=== PATIENT | female | born 1960 | race African-American/Black ===

== ENCOUNTER 2023-02-14 11:52 | Outpatient (CLI) | payer BC, SELFPAY ==
--- NOTE | ~2023-02-14 | XR_ITS ---
Right Knee Technique: AP, lateral, and sunrise views were obtained. Clinical History: Osteoarthritis Findings: No fracture or dislocation is seen. There is advanced tricompartmental osteophytosis, with joint space narrowing and osteophyte formation. Soft tissues are unremarkable. No joint effusion is s een. Impression: Advanced tricompartmental osteoarthritis. Reviewed, dictated and finalized at location M. Impression: Advanced tricompartmental osteoarthritis.
--- NOTE | ~2023-02-14 | XR_ITS ---
Left Knee Technique: AP, lateral, and sunrise views were obtained. Clinical History: Osteoarthritis Findings: No fracture or dislocation is seen. There is severe osteoarthritis of the medial compartmen t, with prominent osteophyte formation and joint space narrowing. There is also moderate to severe de generative change at the patellofemoral compartment, again with joint space narrowing and osteophyte formation. There is mild degenerative change of the lateral compartment. Soft tissues are unremarkabl e. No joint effusion is seen. Impression: Severe osteoarthritis of the medial and patellofemoral compartments, as detailed above. Mild degenerative change of the lateral compartment. Reviewed, dictated and finalized at location M. Impression: Severe osteoarthritis of the medial and patellofemoral compartments, as detaile d above. Mild degenerative change of the lateral compartment.
== END 2023-02-14 11:53 | disposition home or self-care (01) ==
PROVIDERS: Visit Provider Orthopaedic Surgery
DX: M17.0 Bilateral primary osteoarthritis of knee (principal)
CPT/HCPCS: 73564

== ENCOUNTER 2024-11-06 12:50 | Outpatient (CLI) | payer BC, SELFPAY ==
--- NOTE | ~2024-11-06 | XR_ITS ---
Left Knee Technique: AP, lateral, and sunrise views were obtained. Clinical History: Arthritis Findings: No fracture or dislocation is seen. There is severe medial compartment narrowing with bone- on-bone appearance. There is severe degenerative change of the patellofemoral compartment with joint space narrowing. Prominent tricompartmental osteophytes are present. Soft tissues are unremarkable. N o joint effusion is seen. Impression: Severe tricompartmental osteoarthritis, especially medial and patellofemoral compartments. Reviewed, dictated and finalized at location M. Impression: Severe tricompartmental osteoarthritis, especially medial and patellofemoral co mpartments.
--- NOTE | ~2024-11-06 | XR_ITS ---
Right Knee Technique: AP, lateral, and sunrise views were obtained. Clinical History: Arthritis Findings: No fracture or dislocation is seen. There is advanced tricompartmental osteoarthritis with extensive osteophyte formation and tricompartmental joint space narrowing.. Soft tissues are unremark able. No joint effusion is seen. Impression: Severe tricompartmental osteoarthritis. Reviewed, dictated and finalized at location . Impression: Severe tricompartmental osteoarthritis.
--- OUTSIDE RECORDS SUMMARY | 2024-11-07 13:31 | XMS_ITS | Encounter Summary ---
Author Organization [facility] Address [address] [place] [address] Phone Care Team Providers Care Vehicle Sales Professional Name Role Phone Leila Cade MD Primary Care Provider [phone] Lucinda Chowdhury [facility] Primary Care Provider + Lucinda Chowdhury PAC Primary Care Provider + Jostin Stein MD Primary Care Provider [phone] Andrew Hearn MD Primary Care Provider [phone] Reason for Visit * Reason Comments Medication Refill Encounter Details Date Type Department Care Team (Late st Contact Info) Description 09/09/2020 Refill [facility] - Family Medicine [facility] [address] [place] [address] Leila Cade MD [address] [place] [address] Medication Refill Social History Tobacco Use Types Packs/Day Years Used Date Smoking Tobacco: Never Smokeless Tobacco: Never Alcohol Use Standard Drinks/Week Comments No 0 (1 standard drink = 0.6 oz pur e alcohol) PHQ-2 Answer Date Recorded PHQ-2 Score 0 03/13/2019 Comments No Sex and Gender Information Value Date Recorded Sex Assigned at Not on file Legal Sex Female 12:36 AM CDT Gender Identity Not on file Sexual Orientation Not on file COVID-19 Exposure Response Date Recorded In the last month, have you been in contact with someone who was confirmed or suspected to have Coronavirus / COVID-19? 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 Requested Prescriptions Pending Prescriptions Disp Refills traMADol (ULTRAM) 50 MG Tablet [Pharmacy Med Name: TRAMADOL HCL 50 MG TABLET] 120 Tablet 0 Sig: TAKE 1 TAB BY MOUTH EVERY 6 HOURS NEEDED FOR MODERATE OR MORE SEVERE PAIN. Not Delegated - Analgesics: Opioid Agonists Failed - 09/09/2020 7:17 PM Failed - This refill cannot be delegated Passed - Valid encounter within last 6 months Past Office Visits Recent Outpatient Visits 1 month ago Urinary hesitancy [facility] - Leila Anderson MD 6 months ago Sinusitis, unspecified chronicity, unspecified location [facility] - Lucinda Luke PAC 10 months ago Essential hypertension [facility] - Leila Anderson MD 11 months ago Sinusitis, unspecified chronicity, unspecified location [facility] Lucinda Webb PAC 11 months ago Acute pharyngitis, unspecified etiology [facility] Lucinda Webb PAC Upcoming Appointments RN IMMUNOLOGY - Recent and Past Visits Recent Visits Date Type Provider Dept 08/11/20 Office Visit Leila Cade MD [facility] 03/09/20 Telemedicine Lucinda Chowdhury PAC [facility] 11/03/19 Telemedicine Leila Cade MD [facility] 10/02/19 Telemedicine Luicnda Chowdhury PAC [facility] 09/21/19 Office Visit Lucinda Chowdhury PAC [facility] 08/04/19 Office Visit Leila Cade MD [facility] Showing recent visits within past 460 days with a meds authorizing provider and meeting all other requirements Future Appointments No visits were found meeting these conditions. Showing future appointments within next 90 days with a meds authorizing provider and meeting all other requirements Acetaminophen-Codeine 300-60 MG Tablet [Pharmacy Med Name: ACETAMINOPHEN-COD #4 TABLET] 120 Tablet 0 Sig: TAKE 1 TAB BY MOUTH 4 TIMES DAILY NEEDED FOR PAIN. Not Delegated - Analgesics: Opioid Agonist Combinations Failed - 09/09/2020 7:17 PM Failed - This refill cannot be delegated Passed - Valid encounter within last 6 months Past Office Visits Recent Outpatient Visits 1 month ago Urinary hesitancy [facility] Leila Anderson MD 6 months ago Sinusitis, unspecified chronicity, unspecified location [facility] Lucinda Luke PAC 10 months ago Essential hypertension [facility] Leila Anderson MD 11 months ago Sinusitis, unspecified chronicity, unspecified location [facility] Lucinda Luke PAC 11 months ago Acute pharyngitis, unspecified etiology [facility] Lucinda Luke PAC Upcoming Appointments RN IMMUNOLOGY - Recent and Past Visits Recent Visits Date Type Provider Dept 08/11/20 Office Visit Leila Cade MD [facility] 03/09/20 Telemedicine Lucinda Chowdhury PAC [facility] 11/03/19 Telemedicine Leial Cade MD [facility] 10/02/19 Telemedicine Lucinda Chowdhury PAC [facility] 09/21/19 Office Visit Lucinda Chowdhury PAC [facility] 08/04/19 Office Visit Leila Cade MD [facility] Showing recent visits within past 460 days with a meds authorizing provider and meeting all other requirements Future Appointments No visits were found meeting these conditions. Showing future appointments within next 90 days with a meds authorizing provider and meeting all other requirements AVED ROLLER INSPECTOR documented in this encounter Plan of Treatment Upcoming Encounters Date Type Department Care Team (Late st Contact Info) Description 11/12/2024 1:45 PM CDT Office Visit [facility] Family [facility] [address] [place] [address] Andrew Hearn MD [address] [place] [address] [address] documented as of this encounter Visit Diagnoses Diagnosis Chronic pain of both knees documented in this encounter Additional Health Concerns Infection Onset Date Last Indicated Resolved Time COVID - 19 01/20/2024 01/20/2024 01/20/2024 2:33 AM CDT COVID - 19 Confirmed 01/20/2024 01/20/2024 024 12:16 AM CDT Respiratory Rule-Out 09/27/2024 09/27/2024 025 3:40 PM CDT COVID - 19 09/27/2024 09/27/2024 09/27/2024 3:39 PM CDT Assessment Noted Time PHQ-9 Depression Total Score: 0 08/04/19 20 1:54 PM ENGRAVED ROLLER INSPECTOR documented as of this encounter Care Teams Vehicle Sales Professional Relationship Specialty Start Date End Date Leila Cade MD [address] [place] [address] PCP - General Family Medicine 05/25/15 07/08/23 Lucinda Chowdhury, ELD[place] [address] [place] [address] PCP - General Physician Sales Support Engineer 07/09/23 01/02/24 Lucinda Chowdhury PAC [address] [place] [address] PCP - General Physician Sales Support Engineer 01/20/24 02/26/24 Jostin Stein MD [address] [address] PCP - General Family Medicine 03/04/24 03/04/24 Andrew Hearn MD [address] [address] PCP - General Family Medicine 03/16/24 documented as of this encounter
--- OUTSIDE RECORDS SUMMARY | 2024-11-07 13:31 | XMS_ITS | Clinical Summary ---
Author Organization [facility] Address [address] [place] [address] Care Team Providers Care Engineering Production Worker Name Role Phone Tammy Dietrich MD Primary Care Provider [phone] Source Comments [facility],non-[facility] Affiliates and Associated Physician Practices is amultiple site organization consisting of ambulatory clinics and hospital sitesin [place], [place], [place] and [place]. This disclosure is being madepursuant to the Care Everywhere program and may not contain all information available regarding this patient. Last updated 18.[facility] Allergies No known active allergies Medications * Be aware that medications may not be up to date on this document. Alwaysverify current medications with the patient. omeprazole (PRILOSEC) 40 MG capsule Take 40 mg by mouth daily before breakfast. Active losartan (COZAAR) 25 MG tablet Take 25 mg by mouth once daily. Active sennosides (SENOKOT) 8.6 MG tablet Take by mouth once daily Active Docusate Sodium (COLACE PO) Take by mouth once daily Active Probiotic Product (ALIGN PO) Take by mouth once daily Active melatonin 1 MG tablet Take 10 mg by mouth nightly as needed Active folic acid (FOLVITE) 1 MG tablet TAKE 1 TABLET BY MOUTH EVERY DAY 9 Active albuterol HFA (PROVENTIL HFA) 108 (90 BASE) MCG/ACT inhaler Inhale 2 puffs by mouth every 6 hours as needed 9 Active hydroCHLOROthia zide (HYDRODIURIL) 25 MG tablet Take 25 mg by mouth once daily Active magnesium hydroxide (MILK OF MAGNESIA) 400 MG/5ML suspension Take 15 mL by mouth once daily 9 Active Additional Information Patient not taking.Reported on 05/06/2020 Multiple Vitamins-Minera ls (MULTIVITAL PO) Take 1 tablet by mouth once daily Active CALCIUM-VITAMIN D PO Take 1 tablet by mouth once daily Active acetaminophen-c odeine (TYLENOL/CODEIN E #4) 300-60 MG tablet Take 1 tablet by mouth every 6 hours 9 Active traMADol (ULTRAM) 50 MG tablet TAKE 1 TAB BY MOUTH EVERY 6 HOURS NEEDED FOR MODERATE OR MORE SEVERE PAIN. 0 9 Active meclizine (ANTIVERT) 25 MG tablet Take 25 mg by mouth 9 Active candesartan (ATACAND) 8 MG tablet TAKE 1 TABLET BY MOUTH EVERY DAY 0 Active Active Problems Patient Care Coordination No te Formatting of this note migh t be different from the original. Chart abstracted. Problem Noted Date Diagnosed Date S/P laparoscopic sleeve gastrectomy 10/20/2018 Preop examination 10/20/2018 DJD (degenerative joint disease) of knee 010 Overview (03/31/2012): 03/31/2012 Pt not covered for synvisc Family History Medical History Relation Name Comments Leukemia Brother Diabetes - Type 2 Father CAD (Coronary Artery Disease) Maternal Grandmother CVA Maternal Grandmother Hypertension Mother Cancer - Breast Sister Relation Name Status Comments Brother Father Maternal Grandmother Mother Sister Social History Tobacco Use Types Packs/Day Years Used Date Smoking Tobacco: Never Smokeless Tobacco: Never Alcohol Use Standard Drinks/Week Comments No 0 (1 standard drink = 0.6 oz pur e alcohol) Comments No Sex and Gender Information Value Date Recorded Sex Assigned at Not on file Legal Sex Female 4:47 AM CHEMIST FOOD Gender Identity Not on file Sexual Orientation Not on file Last Filed Vital Signs Vital Sign Reading Time Taken Comments Blood Pressure 124/82 06/09/2019 1:00 PM CHEMIST FOOD Pulse 102 06/09/2019 1:00 PM CHEMIST FOOD Temperature 36.8 C (98.2 F) 12/03/2018 3:09 PM CDT Respiratory Rate 18 12/03/2018 3:09 PM CDT Oxygen Saturation 92% 10/22/2018 8:07 AM CDT Inhaled Oxygen Concentration - - Weight 135.2 kg (298 lb) 05/06/2020 1:11 PM CDT Height 175.3 cm (5' 9 ) 05/06/2020 1:11 PM CDT Body Mass Index 44.01 05/06/2020 1:11 PM CDT Plan of Treatment Health Maintenance Due Date Last Done Comments BONE DENSITY TESTING 1959 COLOGUARD (AGES 45-75) - COLON CA SCREENING 1959 COLON MONITORING 1959 COLONOSCOPY - COLON CA SCREENING 1959 CT COLONOGRAPHY - COLON CA SCREENING 1959 Colorectal Cancer Screening 1959 FIT - COLON CA SCREENING 1959 FLEX SIG - COLON CA SCREENING 1959 PAP SMEAR 1959 HIV SCREENING 09/17/1974 HEPATITIS C SCREENING 09/13/1977 DTAP/TDAP/TD VACCINES (1 - Tdap) 09/17/1978 PNEUMOCOCCAL VACCINE 50+ (1 of 1 - PCV) 09/17/2009 ZOSTER VACCINE (1 of 2) 09/17/2009 Respiratory Syncytial Virus (RSV) Vaccine Pt: or over 60 yrs (1 - Risk 60-74 years 1-dose series) 2019 MAMMOGRAM 08/14/2020 08/14/2018 SCREENING FOR DIABETES 06/09/2022 9, 10/22/2018, 10/22/2018, Additional history exists LIPID TESTING 06/13/2023 06/13/2018 COVID-19 VACCINE ( season) 2024 10/04/2020 DEPRESSION SCREENING 07/08/2024 INFLUENZA VACCINE (Season Ended) 2025 04/17/2022, 04/05/2020, 04/28/2019, Additional history exists HEPATITIS B VACCINE Aged Out No longe r eligible based on patient's age to complete this topic HIB VACCINE Aged Out No longer eligi ble based on patient's age to complete this topic HPV VACCINE Aged Out No longer eligi ble based on patient's age to complete this topic MENINGOCOCCAL (Group B) VACCINE SHARED DECISION-MAKING Aged Out No longer eligible based on patient's age to complete this topic MENINGOCOCCAL GROUPS A/C/Y/W VACCINE Aged Out No longer eligible based on patient's age to complete this topic Procedures Procedure Name Priority Date/Time Associated Diagnosis Comments COMPREHENSIVE METABOLIC PANEL Routine 06/09/2019 2:12 PM CHEMIST FOOD Morbid obesity Bariatric surgery status Vitamin deficiency Mineral deficiency Vitamin D deficiency from Last 3 Months or Most Recently Relevant to Health Maintenance Results * (ABNORMAL) COMPREHENSIVE METABOLIC PANEL (06/09/2019 2:12 PM CHEMIST FOOD) Glucose 103 70 - 105 mg/dL [facility] ACCOUNT BILL BUN 17 9.8 - 20.1 mg/dL [facility] ACCOUNT BILL Creatinine 1.15(H) 0.57 - 1.11 mg/dL [facility] ACCOUNT BILL eGFR by MDRD 48(L) >60 mL/min/1.7 3m2 [facility] ACCOUNT BILL eGFR by MDRD 59(L) >60 mL/min/1.7 3m2 [facility] ACCOUNT BILL Sodium 143 136 - 145 mmol/L [facility] ACCOUNT BILL Potassium 4.0 3.5 - 4.7 mmol/L [facility] ACCOUNT BILL Chloride 104 98 - 107 mmol/L [facility] ACCOUNT BILL CO2 32(H) 23 - 31 mmol/L [facility] ACCOUNT BILL Calcium 10.0 8.4 - 10.4 mg/dL [facility] ACCOUNT BILL Protein Total 7.3 6.4 - 8.3 gm/dL [facility] ACCOUNT BILL Albumin 4.3 3.5 - 5.2 gm/dL [facility] ACCOUNT BILL Bilirubin Total 0.3 0.2 - 1.0 mg/dL [facility] ACCOUNT BILL Alkaline Phosphatase 84 40 - 150 U/L [facility] ACCOUNT BILL AST 17 5 - 34 U/L [facility] ACCOUNT BILL ALT 14 0 - 61 U/L [facility] ACCOUNT BILL Blood BLOOD SPECIMEN / Unknown 06/09/2019 2:12 PM CHEMIST FOOD 06/09/2019 Narrative Resulting Agency Comment Lab Testing performed at: [place] [address] [place] [id number] us Laura Garcia REFRIGERATING MACHINE OPERATOR-[employer] [facility] - CHEMISTRY O RDERABLES Final Result [facility] ACCOUNT BILL [address] [place] [address] from Last 3 Months or Most Recently Relevant to Health Maintenance Insurance ANTHEM ANTHEM Advance Directives * Full Code (Latest Code Status on File) Date Activated Date Inactivated Comments 10/20/2018 3:22 PM 10/22/2018 2:27 PM Care Teams Engineering Production Worker Relationship Specialty Start Date End Date Tammy Dietrich MD [address] [address] PCP - General 12/05/18
--- OUTSIDE RECORDS SUMMARY | 2024-11-07 13:31 | XMS_ITS | Encounter Summary ---
Author Organization [facility] Address [address] [place] [address] Phone Care Team Providers Care Radiologist Physician Name Role Phone Lucinda Chowdhury Primary Care Provider + Lucinda Chowdhury PAC Primary Care Provider + Jostin Stein MD Primary Care Provider [phone] Andrew Hearn MD Primary Care Provider [phone] Reason for Visit * Reason Comments Medication Refill Encounter Details Date Type Department Care Team (Late st Contact Info) Description 11/08/2023 Refill [facility] [address] [place] [id number] Lucinda Chowdhury [facility] [address] [place] [address] Medication Refill Social History Tobacco Use Types Packs/Day Years Used Date Smoking Tobacco: Never Smokeless Tobacco: Never Alcohol Use Standard Drinks/Week Comments No 0 (1 standard drink = 0.6 oz pur e alcohol) PHQ-2 Answer Date Recorded Total Score - Questions 1-9 0 07/09 Comments No Sex and Gender Information Value Date Recorded Sex Assigned at Not on file Legal Sex Female 12:36 AM CDT Gender Identity Not on file Sexual Orientation Not on file documented as of this encounter Miscellaneous Notes * Telephone Encounter - Missy Rivera RN - 11/09/2023 11:36 AM CDT Medication(s) refilled and signed per [facility] Chronic Medication Refill Standing Order for Pediatricand Adult Patients. Requested Prescriptions Pending Prescriptions Disp Refills candesartan (ATACAND) 8 MG Tablet [Pharmacy Med Name: CANDESARTAN CILEXETIL 8 MG TAB] 90 Tablet 1 Sig: TAKE 1 TABLET BY MOUTH EVERY DAY ARB Protocol Passed - 11/08/2023 5:43 PM Passed - Serum potassium on record in past 12 months POTASSIUM Date Value Ref Range Status 07/22/2023 2.7 (LL) 3.5 - 5.1 mmol/L Final Passed - BP on record in the past year Clinician-entered: BP Readings from Last 3 Encounters: 08/14/23 154/90 07/12/23 130/82 07/09/23 122/71 Patient-entered: No data recorded Passed - Visit with relevant provider in past year or upcoming 90 days Recent Visits Date Type Provider Dept 07/12/23 Office Visit Agnieszka Fish APRN, LUZMA [facility] [place] 03/21/23 Office Visit Lucinda Chowdhury PAC [facility] [place] 02/07/23 Office Visit Leila Cade MD [facility] [place] 12/25/22 Office Visit Lucinda Chowdhury [facility] [place] Showing recent visits within past 365 days and meeting all other requirements Future Appointments No visits were found meeting these conditions. Showing future appointments within next 90 days and meeting all other requirements Passed - GFR on record in past 12 months GFR, EST. Date Value Ref Range Status 07/22/2023 >60 >=60 Final atorvastatin (LIPITOR) 10 MG Tablet [Pharmacy Med Name: ATORVASTATIN 10 MG TABLET] 90 Tablet 1 Sig: TAKE 1 TABLET BY MOUTH EVERY DAY Hmg CoA Reductase Inhibitors Protocol Passed - 11/08/2023 5:43 PM Passed - Visit with relevant provider in past 12 months or upcoming 90 days Recent Visits Date Type Provider Dept 07/12/23 Office Visit Agnieszka Fish APRN, SURGEON ASSISTANT [facility] [place] 03/21/23 Office Visit Lucinda Chowdhury, PAC [facility] [place] 02/07/23 Office Visit Leila Cade MD [facility] [place] 12/25/22 Office Visit Lucinda Chowdhury, ELDER [facility] [place] Showing recent visits within past 365 days and meeting all other requirements Future Appointments No visits were found meeting these conditions. Showing future appointments within next 90 days and meeting all other requirements Passed - Lipid panel in past 12 months LDL Date Value Ref Range Status 07/22/2023 80 <130 mg/dL Final HDL CHOLESTEROL Date Value Ref Range Status 07/22/2023 71 >40 mg/dL Final CHOLESTEROL Date Value Ref Range Status 07/22/2023 171 <200 mg/dL Final TRIGLYCERIDES Date Value Ref Range Status 07/22/2023 99 <150 mg/dL Final VLDL Date Value Ref Range Status 07/22/2023 20 10 - 50 mg/dL Final CHOL/HDL RATIO Date Value Ref Range Status 07/22/2023 2.4 0.0 - 4.4 Final NON-HDL CHOLESTEROL Date Value Ref Range Status 07/22/2023 100 <130 mg/dL Final Passed - CMP in past 12 months SODIUM Date Value Ref Range Status 07/22/2023 138 136 - 145 mmol/L Final POTASSIUM Date Value Ref Range Status 07/22/2023 2.7 (LL) 3.5 - 5.1 mmol/L Final CHLORIDE Date Value Ref Range Status 07/22/2023 101 98 - 107 mmol/L Final CO2, VENOUS Date Value Ref Range Status 07/22/2023 30 22 - 30 mmol/L Final ANION GAP Date Value Ref Range Status 07/22/2023 9.7 <18.0 mmol/L Final GLUCOSE Date Value Ref Range Status 07/22/2023 85 70 - 99 mg/dL Final BUN Date Value Ref Range Status 07/22/2023 14 10 - 20 mg/dL Final CREATININE, BLOOD Date Value Ref Range Status 07/22/2023 0.94 0.60 - 1.00 mg/dL Final BUN/CREATININE RATIO Date Value Ref Range Status 07/22/2023 15 12 - 20 ratio Final TOTAL PROTEIN Date Value Ref Range Status 07/22/2023 7.6 6.3 - 8.2 g/dL Final ALBUMIN Date Value Ref Range Status 07/22/2023 4.0 3.5 - 5.0 g/dL Final A/G RATIO Date Value Ref Range Status 11/01/2022 1.2 1.0 - 2.0 Final CALCIUM Date Value Ref Range Status 07/22/2023 9.7 8.7 - 10.5 mg/dL Final T BILI Date Value Ref Range Status 07/22/2023 0.6 0.2 - 1.2 mg/dL Final SGOT (AST) Date Value Ref Range Status 07/22/2023 22 5 - 34 U/L Final SGPT (ALT) Date Value Ref Range Status 07/22/2023 31 0 - 55 U/L Final ALKALINE PHOSPHATASE Date Value Ref Range Status 07/22/2023 104 40 - 150 U/L Final GFR, EST. NONAFRICAN Date Value Ref Range Status 07/22/2023 60 >=60 Final GFR, EST. Date Value Ref Range Status 07/22/2023 >60 >=60 Final GFR, ESTIMATED Date Value Ref Range Status 07/22/2023 >60 >=60 Final Comment: Creatinine Clearance is the preferred criteria for selecting drug dose adjustments in renally impaired patients. The GFR is provided as additional pertinent clinical information. GFR is reported in mL/min/1.73 sq m. Calculation based on the Chronic Kidney Disease Epidemiology Collaboration (CKD- EPI) equation refitwithout adjustment for race. IS THE PATIENT REQUIRED TO BE FASTING? Date Value Ref Range Status 07/22/2023 No Final hydroCHLOROthiazide 25 MG Tablet [Pharmacy Med Name: HYDROCHLOROTHIAZIDE 25 MG TAB] 90 Tablet 1 Sig: TAKE 1 TABLET BY MOUTH EVERY DAY Diuretics Protocol Passed - 11/08/2023 5:43 PM Passed - Serum potassium on record in past 12 months POTASSIUM Date Value Ref Range Status 07/22/2023 2.7 (LL) 3.5 - 5.1 mmol/L Final Passed - Serum sodium on record in past 12 months SODIUM Date Value Ref Range Status 07/22/2023 138 136 - 145 mmol/L Final Passed - Blood pressure on record in past 12 months Clinician-entered: BP Readings from Last 3 Encounters: 08/14/23 154/90 07/12/23 130/82 07/09/23 122/71 Patient-entered: No data recorded Passed - Visit with relevant provider in past 12 months or upcoming 90 days Recent Visits Date Type Provider Dept 07/12/23 Office Visit Agnieszka Fish APRN, LUZMA [facility] 03/21/23 Office Visit Lucinda Chowdhury [facility] 02/07/23 Office Visit Leila Cade MD [facility] 12/25/22 Office Visit Lucinda Chowdhury PAC [facility] Showing recent visits within past 365 days and meeting all other requirements Future Appointments No visits were found meeting these conditions. Showing future appointments within next 90 days and meeting all other requirements Passed - GFR on record in past 12 months GFR, EST. Date Value Ref Range Status 07/22/2023 >60 >=60 Final documented in this encounter Plan of Treatment Upcoming Encounters Date Type Department Care Team (Late st Contact Info) Description 11/12/2024 1:45 PM CDT Office Visit [facility] - Family Medicine [facility] [address] [place] [address] Andrew Hearn MD [address] [address] documented as of this encounter Visit Diagnoses Not on filedocumented in this encounter Additional Health Concerns Infection Onset Date Last Indicated Resolved Time COVID - 19 01/20/2024 01/20/2024 01/20/2024 2:33 AM CDT COVID - 19 Confirmed 01/20/2024 01/20/2024 024 12:16 AM CDT Respiratory Rule-Out 09/27/2024 09/27/2024 025 3:40 PM CDT COVID - 19 09/27/2024 09/27/2024 09/27/2024 3:39 PM CDT Assessment Noted Time PHQ-9 Depression Total Score: 0 01/25/20 21 11:00 AM CDT documented as of this encounter Care Teams Radiologist Physician Relationship Specialty Start Date End Date Lucinda Chowdhury PAC [address] [place] [address] PCP - General Physician Coin Purse Assembler 07/09/23 01/02/24 Lucinda Chowdhury, PAC [address] [place] [address] PCP - General Physician Coin Purse Assembler 01/20/24 02/26/24 Jostin Stein MD [address] [address] PCP - General Family Medicine 03/04/24 03/04/24 Andrew Hearn MD [address] [address] PCP - General Family Medicine 03/16/24 documented as of this encounter
--- OUTSIDE RECORDS SUMMARY | 2024-11-07 13:31 | XMS_ITS | Encounter Summary ---
Author Organization [facility] Address [address] [place] [address] Phone Care Team Providers Care Business Intelligence Etl Developer Name Role Phone Leila Cade MD Primary Care Provider Lucinda Chowdhury PAC Primary Care Provider + Lucinda Chowdhury PAC Primary Care Provider + Jostin Stein MD Primary Care Provider [phone] Andrew Hearn MD Primary Care Provider Reason for Visit * Reason Comments Medication Refill Encounter Details Date Type Department Care Team (Late st Contact Info) Description 04/18/2023 Refill [facility] - Family Medicine [facility] [address] [place] [address] Lucinda Chowdhury PAC [address] [place] [address] Medication Refill Social History Tobacco Use Types [...] Exposure Response Date Recorded In the last 10 days, have yo u been in contact with someone who was confirmed or suspected to have Coronavirus/COVID-19? No / Unsure 04/04/2023 1:56 PM CDT documented as of this encounter Miscellaneous Notes * Telephone Encounter - Hedy Canas RN - 04/19/2023 10:27 AM CDT PDMP 03/22/23 Medication failed the protocol, provider to review and approve the medication order if appropriate. Requested Prescriptions Pending Prescriptions Disp Refills Acetaminophen-Codeine 300-60 MG Tablet [Pharmacy Med Name: ACETAMINOPHEN-COD #4 TABLET] 120 Tablet 0 Sig: TAKE 1 TABLET BY MOUTH FOUR TIMES A DAY Not Delegated - Opioid Combinations Protocol Failed - 04/18/2023 7:56 PM Failed - This refill cannot be delegated Passed - Visit with relevant provider in past 12 months or upcoming 90 days Recent Visits Date Type Provider Dept 03/21/23 Office Visit Lucinda Chowdhury PAC [facility] 02/07/23 Office Visit Leila Cade MD [facility] 12/25/22 Office Visit Lucinda Chowdhury PAC [facility] 11/08/22 Office Visit Leila Cade MD [facility] 05/03/22 Office Visit Leila Cade MD [facility] Showing recent visits within past 365 days and meeting all other requirements Future Appointments Date Type Provider Dept 06/13/23 Appointment Leila Cade MD [facility] Showing future appointments within next 90 days and meeting all other requirements documented in this encounter Plan of Treatment Upcoming Encounters Date Type Department Care Team (Late st Contact Info) Description 11/12/2024 1:45 PM CDT Office Visit [facility] - Family Medicine - [place] [address] [place] [address] Andrew Hearn MD [address] [address] documented as of this encounter Visit Diagnoses [...] documented as of this encounter Care Teams Business Intelligence Etl Developer Relationship Specialty Start Date End Date Leila Cade MD [address] [place] [address] PCP - General Family Medicine 05/25/15 07/08/23 Lucinda Chowdhury, PAC [address] [place] [address] PCP - General Physician Field Recorder 07/09/23 01/02/24 Lucinda Chowdhury, PAC [address] [place] [address] PCP - General Physician Field Recorder 01/20/24 02/26/24 Jostin Stein MD [address] [address] PCP - General Family Medicine 03/04/24 03/04/24 Andrew Hearn MD [address] [place] [address] PCP - General Family Medicine 03/16/24 documented as of this encounter
--- OUTSIDE RECORDS SUMMARY | 2024-11-07 13:31 | XMS_ITS | Encounter Summary ---
Author Organization [facility] Address [address] [place] [address] Phone Care Team Providers Care Optimization Engineer Name Role Phone Leila Cade MD Primary Care Provider [phone] Lucinda Chowdhury [facility] Primary Care Provider + Lucinda Chowdhury PAC Primary Care Provider + Jostin Stein MD Primary Care Provider [phone] Andrew Hearn MD Primary Care Provider Reason for Visit * Reason Comments Medication Refill Encounter Details Date Type Department Care Team (Late st Contact Info) Description 05/25/2022 Refill [facility] - Family Medicine [facility] [address] [place] [address] Leila Cade MD [address] [place] [address] Medication Refill Social History Tobacco Use Types [...] suspected to have Coronavirus/COVID-19? No / Unsure 05/03/2022 2:19 PM CDT documented as of this encounter Miscellaneous Notes * Telephone Encounter - Hedy Canas RN - 05/28/2022 8:21 AM CST Medication failed the protocol, provider to review and approve the medication order if appropriate. Requested Prescriptions Pending Prescriptions Disp Refills cyclobenzaprine (FLEXERIL) 10 MG Tablet [Pharmacy Med Name: CYCLOBENZAPRINE 10 MG TABLET] 30 Tablet4 Sig: TAKE 1 TABLET BY MOUTH THREE TIMES A DAY NEEDED FOR MUSCLE SPASMS Not Delegated - Muscle Relaxants Protocol Failed - 05/25/2022 10:16 PM Failed - This refill cannot be delegated Passed - Visit with relevant provider in past 12 months or upcoming 90 days Recent Visits Date Type Provider Dept 05/03/22 Office Visit Leila Cade MD [facility] 01/31/22 Office Visit Leila Cade MD [facility] 08/01/21 Office Visit Leila Cade MD [facility] Showing recent visits within past 365 days and meeting all other requirements Future Appointments No visits were found meeting these conditions. Showing future appointments within next 90 days and meeting all other requirements CAR RACER documented in this encounter Plan of Treatment Upcoming Encounters Date Type Department Care Team (Late st Contact Info) Description 11/12/2024 1:45 PM CDT Office Visit [facility] - Family Medicine - [place] [address] [place] [address] Andrew Hearn MD [address] [address] documented as of this encounter Visit Diagnoses [...] documented as of this encounter Care Teams Optimization Engineer Relationship Specialty Start Date End Date Leila Cade MD [address] [place] [address] PCP - General Family Medicine 05/25/15 07/08/23 Lucinda Chowdhury, PAC [address] [place] [address] PCP - General Physician Logging Rafter Laborer 07/09/23 01/02/24 Lucinda Chowdhury, PAC [address] [place] [address] PCP - General Physician Logging Rafter Laborer 01/20/24 02/26/24 Jostin Stein MD [address] [address] PCP - General Family Medicine 03/04/24 03/04/24 Andrew Hearn MD #[address] [address] PCP - General Family Medicine 03/16/24 documented as of this encounter
--- OUTSIDE RECORDS SUMMARY | 2024-11-07 13:31 | XMS_ITS | Encounter Summary ---
Author Organization [facility] Address [address] [place] [address] Phone Care Team Providers Care Agriculture Consultant Name Role Phone Leila Cade MD Primary Care Provider [phone] Lucinda Chowdhury [facility] Primary Care Provider + Lucinda Chowdhury PAC Primary Care Provider + Jostin Stein MD Primary Care Provider [phone] Andrew Hearn MD Primary Care Provider Reason for Visit * Reason Comments Medication Refill Encounter Details Date Type Department Care Team (Late st Contact Info) Description 03/06/2023 Refill [facility] - Family Medicine [facility] [address] [place] [address] Leila Cade MD [address] [place] [address] Medication Refill Social History Tobacco Use Types [...] suspected to have Coronavirus/COVID-19? No / Unsure 02/07/2023 12:57 PM CDT documented as of this encounter Miscellaneous Notes * Telephone Encounter - Missy Rivera RN - 03/07/2023 3:00 PM CDT Per nursing clinical judgement, provider to review and approve the medication(s) order(s) if appropriate. Requested Prescriptions Pending Prescriptions Disp Refills albuterol 108 (90 Base) MCG/ACT Aerosol Solution [Pharmacy Med Name: ALBUTEROL HFA (PROAIR) INHALER] 1 Sig: take 1-2 Puffs by inhalation every 6 hours as needed for Wheezing. Short Acting Inhaled Beta-Agonists Protocol Passed - 03/06/2023 5:28 PM Passed - Visit with relevant provider in past 12 months or upcoming 90 days Recent Visits Date Type Provider Dept 02/07/23 Office Visit Leila Cade MD [facility] 12/25/22 Office Visit [facility] Chowdhury [facility] 11/08/22 [facility] [place] 05/03/22 Office Visit Leila Cade MD [facility] Showing recent visits within past 365 days and meeting all other requirements Future Appointments No visits were found meeting these conditions. Showing future appointments within next 90 days and meeting all other requirements documented in this encounter Plan of Treatment Upcoming Encounters Date Type Department Care Team (Late st Contact Info) Description 11/12/2024 1:45 PM CDT Office Visit [facility] - Family Medicine - [place] [address] [place] [address] Andrew Hearn MD [address] [address] documented as of this encounter Visit Diagnoses [...] documented as of this encounter Care Teams Agriculture Consultant Relationship Specialty Start Date End Date Leila Cade MD [address] [place] [address] PCP - General Family Medicine 05/25/15 07/08/23 Lucinda Chowdhury, ELDER [address] [place] [address] PCP - General Physician Rn Clinical Research 07/09/23 01/02/24 Lucinda Chowdhury, ELDER [address] [place] [address] PCP - General Physician Rn Clinical Research 01/20/24 02/26/24 Jostin Stein MD [address] [address] PCP - General Family Medicine 03/04/24 03/04/24 Andrew Hearn MD [address] [address] PCP - General Family Medicine 03/16/24 documented as of this encounter
--- OUTSIDE RECORDS SUMMARY | 2024-11-07 13:31 | XMS_ITS | Encounter Summary ---
Author Organization [facility] Address [address] [place] [address] Phone Care Team Providers Care Trade Embalmer Name Role Phone Leila Cade MD Primary Care Provider [phone] Lucinda Chowdhury [facility] Primary Care Provider + Lucinda Chowdhury PAC Primary Care Provider + Jostin Stein MD Primary Care Provider [phone] Andrew Hearn MD Primary Care Provider [phone] Reason for Visit * Reason Comments Medication Refill Encounter Details Date Type Department Care Team (Late st Contact Info) Description 11/05/2022 Refill [facility] - [facility] [address]2 [place] [address] Leila Cade MD #2 [place] [address] Medication Refill Social History Tobacco Use Types [...] suspected to have Coronavirus/COVID-19? No / Unsure 11/08/2022 1:36 PM CDT documented as of this encounter Functional Status * Question Answer Date of Assessment Author Little interest or pleasure in doing things Not at all 11/08/2022 1:00 PM CDT Seferino Lester RMA Feeling down, depressed, or hopeless Not at all 11/08/2022 1:00 PM CDT Seferino Lester RMA * Over the past 2 weeks, how often have you been bothered by any of the following problems? Question Answer Date of Assessment Author Patient Health Questionnaire -2 Score 0 11/08/2022 1:00 PM CDT Seferino Lester RMA documented as of this encounter Miscellaneous Notes * Telephone Encounter - Hedy Canas RN - 11/06/2022 1:51 PM CDT PDMP Tramadol 10/08/22 Medication failed the protocol, provider to review and approve the medication order if appropriate. Requested Prescriptions Pending Prescriptions Disp Refills traMADol (ULTRAM) 50 MG Tablet [Pharmacy Med Name: TRAMADOL HCL 50 MG TABLET] 120 Tablet 0 Sig: TAKE 1 TABLET BY MOUTH EVERY 6 HOURS NEEDED FOR MODERATE OR SEVERE PAIN Not Delegated - Opioid Agonists Protocol Failed - 11/05/2022 10:56 PM Failed - This refill cannot be delegated Passed - Visit with relevant provider in past 12 months or upcoming 90 days Recent Visits Date Type Provider Dept 05/03/22 Office Visit Leila Cade MD [facility] 01/31/22 Office Visit Leila Cade MD [facility] Showing recent visits within past 365 days and meeting all other requirements Future Appointments Date Type Provider Dept 11/08/22 Appointment Leila Cade MD [facility] Showing future appointments within next 90 days and meeting all other requirements Refused Prescriptions Disp Refills Klor-Con M20 20 MEQ Tablet Controlled Release [Pharmacy Med Name: KLOR-CON M20 TABLET] 90 Tablet 1 Sig: TAKE 1 TABLET BY MOUTH EVERY DAY Potassium Supplement Protocol Failed - 11/05/2022 10:56 PM Failed - Normal serum potassium in past 12 months POTASSIUM Date Value Ref Range Status 11/01/2022 3.4 (L) 3.5 - 5.1 mmol/L Final Passed - Visit with relevant provider in past 12 months or upcoming 90 days Recent Visits Date Type Provider Dept 05/03/22 Office Visit Leila Cade MD [facility] 01/31/22 Office Visit Leila Cade MD [facility] Showing recent visits within past 365 days and meeting all other requirements Future Appointments Date Type Provider Dept 11/08/22 Appointment Leila Cade MD [facility] Showing future appointments within next 90 days and meeting all other requirements atorvastatin (LIPITOR) 10 MG Tablet [Pharmacy Med Name: ATORVASTATIN 10 MG TABLET] 90 Tablet 1 Sig: TAKE 1 TABLET BY MOUTH EVERY DAY Hmg CoA Reductase Inhibitors Protocol Passed - 11/05/2022 10:56 PM Passed - Visit with relevant provider in past 12 months or upcoming 90 days Recent Visits Date Type Provider Dept 05/03/22 Office Visit Leila Cdae MD [facility] 01/31/22 Office Visit Leila Cade MD [facility] Showing recent visits within past 365 days and meeting all other requirements Future Appointments Date Type Provider Dept 11/08/22 Appointment Leila Cade MD [facility] Showing future appointments within next 90 days and meeting all other requirements Passed - Lipid panel in past 12 months LDL Date Value Ref Range Status 11/01/2022 79 5 - 130 mg/dL Final HDL CHOLESTEROL Date Value Ref Range Status 11/01/2022 61.1 >40 mg/dL Final CHOLESTEROL Date Value Ref Range Status 11/01/2022 160 <=200 mg/dL Final TRIGLYCERIDES Date Value Ref Range Status 11/01/2022 98 <150 mg/dL Final VLDL Date Value Ref Range Status 11/01/2022 20 5 - 55 mg/dL Final CHOL/HDL RATIO Date Value Ref Range Status 11/01/2022 2.6 0.0 - 4.4 Final NON-HDL CHOLESTEROL Date Value Ref Range Status 11/01/2022 98.9 <130 mg/dL Final * Telephone Encounter - Hedy Canas RN - 11/06/2022 1:49 PM CDT Images from the original note were not included. Potassium Chloride Vero ER Dispensed Days Supply Quantity Provider Pharmacy KLOR-CON M20 TABLET 11/01/2022 30 30 Each Leila Cade MD [facility]/pharmacy #[id number] - A... KLOR-CON M20 TABLET 08/04/2022 90 90 Each Leila Cade MD [facility]/pharmacy #[id number] - A... Should have 60 days left on Rx * Telephone Encounter - Hedy Canas RN - 11/06/2022 1:47 PM CDT Images from the original note were not included. Atorvastatin Calcium Dispensed Days Supply Quantity Provider Pharmacy ATORVASTATIN 10 MG TABLET 10/16/2022 90 90 Each Leila Cade MD [facility]/pharmacy #[id number] - A... ATORVASTATIN 10 MG TABLET 07/21/2022 90 90 Each Leila Cade MD [facility]/pharmacy #[id number] - A... documented in this encounter Plan of Treatment Upcoming Encounters Date Type Department Care Team (Late st Contact Info) Description 11/12/2024 1:45 PM CDT Office Visit [facility] - Family Medicine - [place] [address] [place] [address] Andrew Hearn MD [address] [address] documented as of this encounter Visit Diagnoses [...] documented as of this encounter Care Teams Trade Embalmer Relationship Specialty Start Date End Date Leila Cade MD [address]2 [place] [address] PCP - General Family Medicine 05/25/15 07/08/23 Lucinda Chowdhury, [facility] [address] [place] [address] PCP - General Physician Ear Machine Operator 07/09/23 01/02/24 Lucinda Chowdhury, [facility] [address] [place] [address] PCP - General Physician Ear Machine Operator 01/20/24 02/26/24 Jostin Stein MD #[address] [address] PCP - General Family Medicine 03/04/24 03/04/24 Andrew Hearn MD #[address] [address] PCP - General Family Medicine 03/16/24 documented as of this encounter
--- OUTSIDE RECORDS SUMMARY | 2024-11-07 13:31 | XMS_ITS | Encounter Summary ---
Author Organization [facility] Address [address] [place] [address] Phone Care Team Providers Care Enrober Tender Name Role Phone Lucinda Chowdhury Primary Care Provider + Lucinda Chowdhury Primary Care Provider + Jostin Stein MD Primary Care Provider [phone] Andrew Hearn MD Primary Care Provider [phone] Reason for Visit * Reason Comments Medication Refill Encounter Details Date Type Department Care Team (Late st Contact Info) Description 08/06/2023 Refill [facility] [address] [place] [address] Agnieszka Fish APRN, BLASTING ENTRYMAN #[address] [address] Medication Refill Social History Tobacco Use Types [...] encounter Miscellaneous Notes * Telephone Encounter - Urvashi Antunez RMA - 08/07/2023 11:40 AM AREA ATTENDANT LVM to return call. ATTENDANT * Telephone Encounter - Hedy Canas RN - 08/07/2023 7:35 AM CST Needs OV to transfer to a provider. ATTENDANT * Telephone Encounter - Hedy Canas RN - 08/07/2023 7:35 AM CST Images from the original note were not included. August 06, 2023 Lucinda Chowdhury, PAC ?? 08/06/23 ??1:04 PM Note ?? Patient has not established care with me and has no appointments scheduled pcp was changed by registration staff at hospital ATTENDANT documented in this encounter Plan of Treatment Upcoming Encounters Date Type Department Care Team (Late st Contact Info) Description 11/12/2024 1:45 PM CDT Office Visit [facility] - Family Medicine [facility] [address] [place] [address] Andrew Hearn MD [address] [address] documented as of this encounter Visit Diagnoses Diagnosis Right shoulder strain, initial encounter documented in this encounter Additional Health Concerns Infection Onset Date Last Indicated Resolved Time COVID - 19 01/20/2024 01/20/2024 01/20/2024 2:33 AM CDT COVID - 19 Confirmed 01/20/2024 01/20/2024 024 12:16 AM CDT Respiratory Rule-Out 09/27/2024 09/27/2024 03/23/2 025 3:40 PM CDT COVID - 19 09/27/2024 09/27/2024 09/27/2024 3:39 PM CDT Assessment Noted Time PHQ-9 Depression Total Score: 0 01/25/20 11:00 AM CDT documented as of this encounter Care Teams Enrober Tender Relationship Specialty Start Date End Date Lucinda Chowdhury PAC [address] [place] [address] PCP - General Physician Travel Manager 07/09/23 01/02/24 Lucinda Chowdhury [facility] [address] [place] [address] PCP - General Physician Travel Manager 01/20/24 02/26/24 Jostin Stein MD #[address] [address] PCP - General Family Medicine 03/04/24 03/04/24 Andrew Hearn MD #[address] [address] PCP - General Family Medicine 03/16/24 documented as of this encounter
--- OUTSIDE RECORDS SUMMARY | 2024-11-07 13:31 | XMS_ITS | Encounter Summary ---
Author Organization [facility] Address [address] [place] [address] Phone Care Team Providers Care Boxing Trainer Name Role Phone Leila Cade MD Primary Care Provider Lucinda Chowdhury [facility] Primary Care Provider + Lucinda Chowdhury PAC Primary Care Provider + Jostin Stein MD Primary Care Provider [phone] Andrew Hearn MD Primary Care Provider Reason for Visit * Reason Onset Date Comments COVID-19 03/09/2020 Encounter Details Date Type Department Care Team (Late st Contact Info) Description 03/09/2020 [facility] [address] [place] [address] Leila Cade MD [address] [place] [address] COVID-19 Social History Tobacco Use Types Packs/Day Years [...] or suspected to have Coronavirus / COVID-19? Yes 02/13/2020 2:40 PM CDT documented as of this encounter Miscellaneous Notes * Telephone Encounter - Erika Simental RN - 03/09/2020 11:51 AM CDT SITUATION: Respiratory BACKGROUND: COVID on 02/12 ASSESSMENT: Symptom Description / Location: Wheezing, Coughing- clear/yellow phelgm, intermittent chest pain, congested Denies SOB Pain (0-10): denies Temp: Denies fevers or chills Treatment / Response: Cough syrup, Nyquil, Mucinex RECOMMENDATION: Call the RN backline to see what the provider would like. Patient is going to try to do a video visit today with provider. Walked patient through the steps. documented in this encounter Plan of Treatment Upcoming Encounters Date Type Department Care Team (Late st Contact Info) Description 11/12/2024 1:45 PM CDT [facility] Visit [facility] [address] [place] [address] Andrew Hearn MD #[address] [address] documented as of this encounter Visit Diagnoses Not on filedocumented in this encounter Additional Health Concerns Infection Onset Date Last Indicated Resolved Time COVID - 19 Confirmed 02/13/2020 02/13/2020 020 12:18 AM CDT COVID - 19 01/20/2024 01/20/2024 01/20/2024 2:33 AM CDT COVID - 19 Confirmed 01/20/2024 01/20/2024 024 12:16 AM CDT Respiratory Rule-Out 09/27/2024 09/27/2024 025 3:40 PM CDT COVID - 19 09/27/2024 09/27/2024 09/27/2024 3:39 PM CDT Assessment Noted Time PHQ-9 Depression Total Score: 0 08/04/19 20 1:54 PM SCREEN TACKER documented as of this encounter Care Teams Boxing Trainer Relationship Specialty Start Date End Date Leila Cade MD [address] [place] [address] PCP - General Family Medicine 05/25/15 07/08/23 Lucinda Chowdhury, [facility] [address] [place] [address] PCP - General Physician Senior Brand Manager 07/09/23 01/02/24 Lucinda Chowdhury, [facility] [address] [place] [address] PCP - General Physician Senior Brand Manager 01/20/24 02/26/24 Jostin Stein MD #[address] [address] PCP - General Family Medicine 03/04/24 03/04/24 Andrew Hearn MD #[address] [address] PCP - General Family Medicine 03/16/24 documented as of this encounter
--- OUTSIDE RECORDS SUMMARY | 2024-11-07 13:31 | XMS_ITS | Encounter Summary ---
Author Organization [facility] Address [address] [place] [address] Phone Care Team Providers Care Leather Parts Matcher Name Role Phone Leila Cade MD Primary Care Provider [phone] Lucinda Chowdhury [facility] Primary Care Provider + Lucinda Chowdhury PAC Primary Care Provider + Jostin Stein MD Primary Care Provider [phone] Andrew Hearn MD Primary Care Provider Reason for Visit * Reason Comments Medication Refill Encounter Details Date Type Department Care Team (Late st Contact Info) Description 11/16/2022 Refill [facility] - Family Medicine [facility] [address] [place] [address] Leila Cade MD [address] [place] [address] Medication Refill Social History Tobacco Use Types [...] Telephone Encounter - Hedy Canas RN - 11/16/2022 11:54 AM CDT PDMP 10/08/22 Medication failed the protocol, provider to review and approve the medication order if appropriate. Requested Prescriptions Pending Prescriptions Disp Refills Acetaminophen-Codeine 300-60 MG Tablet [Pharmacy Med Name: ACETAMINOPHEN-COD #4 TABLET] 120 Tablet 0 Sig: TAKE 1 TABLET BY MOUTH 4 TIMES A DAY NEEDED FOR ARTHRITIS PAIN. Not Delegated - Opioid Combinations Protocol Failed - 11/16/2022 10:37 AM Failed - This refill cannot be delegated Passed - Visit with relevant provider in past 12 months or upcoming 90 days Recent Visits Date Type Provider Dept 11/08/22 [facility] Office Visit Leila Cade MD [facility] 01/31/22 Office Visit Leila Cade MD [facility] Showing recent visits within past 365 days and meeting all other requirements Future Appointments Date Type Provider Dept 02/07/23 Appointment Leila Cade MD [facility] Showing future appointments within next 90 days and meeting all other requirements documented in this encounter Plan of Treatment Upcoming Encounters Date Type Department Care Team (Late st Contact Info) Description 11/12/2024 1:45 PM CDT Office Visit [facility] - Family Medicine - [place] [address] [place] [address] Andrew Hearn MD [address] [address] documented as of this encounter Visit Diagnoses [...] documented as of this encounter Care Teams Leather Parts Matcher Relationship Specialty Start Date End Date Leila Cade MD [address] [place] [address] PCP - General Family Medicine 05/25/15 07/08/23 Lucinda Chowdhury PAC [address] [place] [address] PCP - General Physician Template Cutter 07/09/23 01/02/24 Lucinda Chowdhury, [facility] [address] [place] [address] PCP - General Physician Template Cutter 01/20/24 02/26/24 Jostin Stein MD #[address] [address] PCP - General Family Medicine 03/04/24 03/04/24 Andrew Hearn MD #[address] [address] PCP - General Family Medicine 03/16/24 documented as of this encounter
--- OUTSIDE RECORDS SUMMARY | 2024-11-07 13:31 | XMS_ITS | Encounter Summary ---
Author Organization [facility] Address [address] [place] [address] Phone Care Team Providers Care Telecommunications Administrator Name Role Phone Leila Cade MD Primary Care Provider [phone] [facility] Primary Care Provider + Lucinda Chowdhury PAC Primary Care Provider + Jostin Stein MD Primary Care Provider [phone] Andrew Hearn MD Primary Care Provider [phone] Reason for Visit * Reason Comments Medication Refill Encounter Details Date Type Department Care Team (Late st Contact Info) Description 12/10/2022 Refill [facility] - Family Medicine [facility] #[address] [place] [address] Leila Cade MD [address] [place] [address] Medication Refill Social History Tobacco Use Types [...] Notes * Telephone Encounter - Hedy Canas Janice RN - 12/11/2022 2:27 PM CDT PDMP 11/06/22 Medication failed the protocol, provider to review and approve the medication order if appropriate. Requested Prescriptions Pending Prescriptions Disp Refills traMADol (ULTRAM) 50 MG Tablet [Pharmacy Med Name: TRAMADOL HCL 50 MG TABLET] 120 Tablet 0 Sig: TAKE 1 TABLET BY MOUTH EVERY 6 HOURS NEEDED FOR MODERATE OR SEVERE PAIN Not Delegated - Opioid Agonists Protocol Failed - 12/10/2022 11:00 PM Failed - This refill cannot be delegated Passed - Visit with relevant provider in past 12 months or upcoming 90 days Recent Visits Date Type Provider Dept 11/08/22 Office Visit Leila Cade MD [facility] 05/03/22 Office Visit Leila Cade MD [facility] 01/31/22 Office Visit Leila Cade MD [facility] Showing recent visits within past 365 days and meeting all other requirements Future Appointments Date Type Provider Dept 02/07/23 Appointment Leila Cade MD [facility] Showing future appointments within next 90 days and meeting all other requirements hydroCHLOROthiazide 25 MG Tablet [Pharmacy Med Name: HYDROCHLOROTHIAZIDE 25 MG TAB] 90 Tablet 1 Sig: TAKE 1 TABLET BY MOUTH EVERY DAY Diuretics Protocol Passed - 12/10/2022 11:00 PM Passed - Serum potassium on record in past 12 months POTASSIUM Date Value Ref Range Status 11/01/2022 3.4 (L) 3.5 - 5.1 mmol/L Final Passed - Serum sodium on record in past 12 months SODIUM Date Value Ref Range Status 11/01/2022 140 136 - 144 mmol/L Final Passed - Blood pressure on record in past 12 months Clinician-entered: BP Readings from Last 3 Encounters: 11/08/22 134/84 05/03/22 128/90 01/31/22 122/70 Patient-entered: No data recorded Passed - Visit with relevant provider in past 12 months or upcoming 90 days Recent Visits Date Type Provider Dept 11/08/22 Office Visit Leila Cade MD [facility] 05/03/22 Office Visit Leila Cade MD [facility] 01/31/22 Office Visit Leila Cade MD [facility] Showing recent visits within past 365 days and meeting all other requirements Future Appointments Date Type Provider Dept 02/07/23 Appointment Leila Cade MD [facility] Showing future appointments within next 90 days and meeting all other requirements Passed - GFR on record in past 12 months GFR, EST. Date Value Ref Range Status 11/01/2022 >60 >=60 Final documented in this encounter Plan of Treatment Upcoming Encounters Date Type Department Care Team (Late st Contact Info) Description 11/12/2024 1:45 PM CDT Office Visit [facility] - Family Medicine [facility] [address] [place] [address] Andrew Hearn MD [address] [address] documented as of this encounter Visit Diagnoses [...] documented as of this encounter Care Teams Telecommunications Administrator Relationship Specialty Start Date End Date Leila Cade MD #[address] [place] [address] PCP - General Family Medicine 05/25/15 07/08/23 Lucinda Chowdhury, [facility] [address] [place] [address] PCP - General Physician Terminal Operations Manager 07/09/23 01/02/24 Lucinda Chowdhury, [facility] [address] [place] [address] PCP - General Physician Terminal Operations Manager 01/20/24 02/26/24 Jostin Stein MD #[address] [address] PCP - General Family Medicine 03/04/24 03/04/24 Andrew Hearn MD #[address] [address] PCP - General Family Medicine 03/16/24 documented as of this encounter
--- OUTSIDE RECORDS SUMMARY | 2024-11-07 13:31 | XMS_ITS | Encounter Summary ---
Author Organization [facility] Address [address] [place] [address] Phone Care Team Providers Care Screening Technician Name Role Phone Andrew Hearn MD Primary Care Provider Reason for Visit * Reason Comments Medication Refill Encounter Details Date Type Department Care Team (Late st Contact Info) Description 10/08/2024 Refill [facility] Medicine [facility] #2 [place] [id number] Andrew Hearn MD #[address] [address] Medication Refill Social History Tobacco Use Types Packs/Day Years Used Date Smoking Tobacco: Never Smokeless Tobacco: Never Alcohol Use Standard Drinks/Week Comments No 0 (1 standard drink = 0.6 oz pur e alcohol) PHQ-2 Answer Date Recorded Total Score - Questions 1-9 0 07/09 Sexually Active Control Partners Comments Yes Comments No Sex and Gender Information Value Date Recorded Sex Assigned at Not on file Legal Sex Female 12:36 AM CDT Gender Identity Not on file Sexual Orientation Not on file documented as of this encounter Miscellaneous Notes * Telephone Encounter - Hedy Canas RN - 10/09/2024 10:32 AM CDT Needs OV * Telephone Encounter - Hedy Canas RN - 10/09/2024 10:20 AM CDT Images from the original note were not included. traMADol HCl Dispensed Days Supply Quantity Provider Pharmacy TRAMADOL HCL 50 MG TABLET 09/09/2024 30 120 Andrew Hearn MD [facility]/pharmacy #[id number] - G... TRAMADOL HCL 50 MG TABLET 08/10/2024 30 120 Andrew Hearn MD [facility]/pharmacy #[id number] - G... Medication failed the protocol, provider to review and approve the medication order if appropriate. Requested Prescriptions Pending Prescriptions Disp Refills traMADol (ULTRAM) 50 MG Tablet [Pharmacy Med Name: TRAMADOL HCL 50 MG TABLET] 120 Tablet 0 Sig: TAKE 1 TABLET BY MOUTH EVERY 6 HOURS NEEDED FOR MODERATE OR MORE SEVERE PAIN OR SEVERE PAIN. Not Delegated - Opioid Agonists Protocol Failed - 10/09/2024 10:20 AM Failed - This refill cannot be delegated Passed - Visit with relevant provider in past 12 months or upcoming 90 days Recent Visits Date Type Provider Dept 07/07/24 Office Visit Andrew Hearn MD [facility] 03/16/24 [facility] Office Visit Jostin Stein MD [facility] 01/28/24 Office Visit Andrew Hearn MD [facility] Showing recent visits within past 365 days and meeting all other requirements Future Appointments No visits were found meeting these conditions. Showing future appointments within next 90 days and meeting all other requirements documented in this encounter Plan of Treatment Upcoming Encounters Date Type Department Care Team (Late st Contact Info) Description 11/12/2024 1:45 PM CDT Office Visit [facility] - Family Medicine - [place] [address] [place] [address] Andrew Hearn MD [address] [address] documented as of this encounter Visit Diagnoses Diagnosis Right shoulder strain, initial encounter Primary osteoarthritis of both knees Primary localized osteoarthrosis, lower leg documented in this encounter Additional Health Concerns Assessment Noted Time PHQ-9 Depression Total Score: 0 01/25/20 21 11:00 AM CDT documented as of this encounter Care Teams Screening Technician Relationship Specialty Start Date End Date Andrew Hearn MD #2 [facility] [address] [place] [address] PCP - General Family Medicine 03/16/24 documented as of this encounter
--- OUTSIDE RECORDS SUMMARY | 2024-11-07 13:31 | XMS_ITS | Encounter Summary ---
Author Organization [facility] Address [address] [place] [address] Phone Care Team Providers Care Air Hammer Stripper Name Role Phone Leila Cade MD Primary Care Provider Lucinda Chowdhury PAC Primary Care Provider + Lucinda Chowdhury PAC Primary Care Provider + Jostin Stein MD Primary Care Provider [phone] Andrew Hearn MD Primary Care Provider [phone] Reason for Visit * Reason Comments Medication Refill Encounter Details Date Type Department Care Team (Late st Contact Info) Description 08/07/2021 Refill [facility] - Family Medicine [facility] [address] [place] [address] Lucinda Chowdhury PAC [address] [place] [address] Medication Refill Social History Tobacco Use Types [...] have Coronavirus / COVID-19? No / Unsure 08/01/2021 11:[address] ENGINEER documented as of this encounter Miscellaneous Notes * Telephone Encounter - Hedy Canas RN - 08/08/2021 9:26 AM CST Patient is taking flonase ENGINEER * Telephone Encounter - Hedy Canas RN - 08/08/2021 9:26 AM CST Name from pharmacy: AZELASTINE 0.1% (137 MCG) SPRY Will file in chart as: azelastine (ASTELIN) 0.1 % Solution The original prescription was discontinued on 11/03/2019 by Leila Cade MD ENGINEER documented in this encounter Plan of Treatment Upcoming Encounters Date Type Department Care Team (Late st Contact Info) Description 11/12/2024 1:45 PM CDT Office Visit [facility] Medical Group - Family Medicine [facility] [address] [place] [address] Andrew Hearn MD [address] [address] documented as of this encounter Visit Diagnoses [...] documented as of this encounter Care Teams Air Hammer Stripper Relationship Specialty Start Date End Date Leila Cade MD #2 [place] [address] PCP - General Family Medicine 05/25/15 07/08/23 Lucinda Chowdhury, PAC [address] [place] [address] PCP - General Physician Snow Removing Supervisor 07/09/23 01/02/24 Lucinda Chowdhury, [facility] [address] [place] [address] PCP - General Physician Snow Removing Supervisor 01/20/24 02/26/24 Jostin Stein MD #[address] [address] PCP - General Family Medicine 03/04/24 03/04/24 Andrew Hearn MD #[address] [address] PCP - General Family Medicine 03/16/24 documented as of this encounter
--- OUTSIDE RECORDS SUMMARY | 2024-11-07 13:31 | XMS_ITS | Encounter Summary ---
Author Organization [facility] Address [address] [place] [address] Phone Care Team Providers Care Manager Property Name Role Phone Andrew Hearn MD Primary Care Provider [phone] Reason for Visit * Reason Comments Medication Refill Encounter Details Date Type Department Care Team (Late st Contact Info) Description 10/29/2024 Refill [facility] [address]2 [place] [id number] Lucinda Chowdhury [facility] [address] [place] [address] Medication Refill Social History Tobacco Use Types [...] Telephone Encounter - Hedy Canas RN - 10/30/2024 8:16 AM CDT Images from the original note were not included. Atorvastatin Calcium Dispensed Days Supply Quantity Provider Pharmacy ATORVASTATIN 10 MG TABLET 09/19/2024 90 90 Each Lucinda Chowdhury [facility]/pharmacy #[id number] - G... Candesartan Cilexetil Dispensed Days Supply Quantity Provider Pharmacy CANDESARTAN CILEXETIL 8 MG TAB 09/14/2024 90 90 Each Lucinda Chowdhury [facility]/pharmacy #[id number] -G hydroCHLOROthiazide Dispensed Days Supply Quantity Provider Pharmacy HYDROCHLOROTHIAZIDE 25 MG TAB 09/12/2024 90 90 Each Lucinda Chowdhury [facility]/pharmacy #[id number] - G... documented in this encounter Plan of Treatment Upcoming Encounters Date Type Department Care Team (Late st Contact Info) Description 11/12/2024 1:45 PM CDT Office Visit [facility] [address] [place] [address] Andrew Hearn MD #[address] [address] documented as of this encounter Visit Diagnoses Not on filedocumented in this encounter Additional Health Concerns Assessment Noted Time PHQ-9 Depression Total Score: 0 01/25/20 21 11:00 AM CDT documented as of this encounter Care Teams Manager Property Relationship Specialty Start Date End Date Andrew Hearn MD [address] [address] PCP - General Family Medicine 03/16/24 documented as of this encounter
--- OUTSIDE RECORDS SUMMARY | 2024-11-07 13:31 | XMS_ITS | Encounter Summary ---
Author Organization [facility] Address [address] [place] [address] Phone Care Team Providers Care Pediatric Intensive Physician Name Role Phone Leila Cade MD Primary Care Provider Lucinda Chowdhury PAC Primary Care Provider + Lucinda Chowdhury PAC Primary Care Provider + Jostin Stein MD Primary Care Provider [phone] Andrew Hearn MD Primary Care Provider Reason for Visit * Reason Comments Medication Refill Encounter Details Date Type Department Care Team (Late st Contact Info) Description 07/15/2021 Refill [facility] - Family Medicine [facility] [address] [place] [address] Lucinda Chowdhury PAC [address] [place] [address] Medication Refill Social History Tobacco Use Types Packs/Day Years Used Date Smoking Tobacco: Never Smokeless Tobacco: Never Alcohol Use Standard Drinks/Week Comments No 0 (1 standard drink = 0.6 oz pur e alcohol) PHQ-2 Answer Date Recorded Total Score - Questions 1-9 0 01/06 Comments No Sex and Gender Information Value Date Recorded Sex Assigned at Not on file Legal Sex Female 12:36 AM CDT Gender Identity Not on file Sexual Orientation Not on file documented as of this encounter Miscellaneous Notes * Telephone Encounter - Leila Cade MD - 07/18/2021 8:04 AM SHEETMETAL TRADES WORKER Wait till appt time please TMETAL TRADES WORKER * Telephone Encounter - Hedy Canas RN - 07/18/2021 7:31 AM CST Patient has follow up 08/01/21 - scheduled since January. Do you want to authorize a refill OR wait until appt time? TMETAL TRADES WORKER * Telephone Encounter - Hedy Canas RN - 07/17/2021 10:11 AM CST Medication failed the protocol, provider to review and approve the medication order if appropriate. Requested Prescriptions Pending Prescriptions Disp Refills Xenical 120 MG Capsule [Pharmacy Med Name: XENICAL 120 MG CAPSULE] 90 Capsule 1 Sig: TAKE 1 CAPSULE BY MOUTH 3 TIMES A DAY WITH MEALS Not Delegated - Anti-Obesity Agents Protocol Failed - 07/15/2021 8:54 PM Failed - This refill cannot be delegated Passed - Visit with relevant provider in past 12 months or upcoming 90 days Recent Visits Date Type Provider Dept 04/27/21 Office Visit Lucinda Chowdhury PAC [facility] 01/24/21 Office Visit Lucinda Chowdhury PAC [facility] 08/11/20 Office Visit Leila Cade MD [facility] Showing recent visits within past 365 days and meeting all other requirements Future Appointments Date Type Provider Dept 08/01/21 Appointment Leila Cade MD [facility] Showing future appointments within next 90 days and meeting all other requirements TMETAL TRADES WORKER documented in this encounter Plan of Treatment Upcoming Encounters Date Type Department Care Team (Late st Contact Info) Description 11/12/2024 1:45 PM CDT [facility] Visit [facility] [address] [place] [address] Andrew Hearn MD [address] [address] documented as of this encounter Visit Diagnoses [...] documented as of this encounter Care Teams Pediatric Intensive Physician Relationship Specialty Start Date End Date Leila Cade MD [address] [place] [address] PCP - General Family Medicine 05/25/15 07/08/23 Lucinda Chowdhury, PAC [address] [place] [address] PCP - General Physician Lead Software Test Engineer 07/09/23 01/02/24 Lucinda Chowdhury, PAC [address] [place] [address] PCP - General Physician Lead Software Test Engineer 01/20/24 02/26/24 Jostin Stein MD #[address] [address] PCP - General Family Medicine 03/04/24 03/04/24 [facility] Hearn MD [facility] [address] PCP - General Family Medicine 03/16/24 documented as of this encounter
--- OUTSIDE RECORDS SUMMARY | 2024-11-07 13:31 | XMS_ITS | Encounter Summary ---
Author Organization [facility] Address [address] [place] [address] Phone Care Team Providers Care Monitoring And Evaluation Advisor Name Role Phone Leila Cade MD Primary Care Provider [phone] Lucinda hCowdhury [facility] Primary Care Provider + Lucinda Chowdhury PAC Primary Care Provider + Jostin Stein MD Primary Care Provider [phone] Andrew Hearn MD Primary Care Provider Reason for Visit * Reason Comments Medication Refill Encounter Details Date Type Department Care Team (Late st Contact Info) Description 04/08/2023 Refill [facility] Medical Group - Family Medicine [facility] [address] [place] [address] Leila Cade MD [address] [place] [address] Medication Refill Social History Tobacco Use Types [...] Telephone Encounter - Hedy Canas RN - 04/09/2023 11:40 AM CDT PDMP 03/11/23 Medication failed the protocol, provider to review and approve the medication order if appropriate. Requested Prescriptions Pending Prescriptions Disp Refills traMADol (ULTRAM) 50 MG Tablet [Pharmacy Med Name: TRAMADOL HCL 50 MG TABLET] 120 Tablet 0 Sig: TAKE 1 TABLET BY MOUTH EVERY 6 HOURS FOR MODERATE OR MORE SEVERE PAIN Not Delegated - Opioid Agonists Protocol Failed - 04/08/2023 2:06 PM Failed - This refill cannot be delegated Passed - Visit with relevant provider in past 12 months or upcoming 90 days Recent Visits Date Type Provider Dept 03/21/23 Office Visit Lucinda Chowdhury [facility] 02/07/23 Office Visit Leila Cade MD [facility] 12/25/22 Office Visit Lucinda Chowdhury PAC [facility] 11/08/22 Office Visit Leila Cade MD [facility] 05/03/22 Office Visit Leila Cade MD [...] EVERY DAY Potassium Supplement Protocol Failed - 04/08/2023 2:06 PM Failed - Normal serum potassium in past 12 months POTASSIUM Date Value Ref Range Status 11/01/2022 3.4 (L) 3.5 - 5.1 mmol/L Final Passed - Visit with relevant provider in past 12 months or upcoming 90 days Recent Visits Date Type Provider Dept 03/21/23 Office Visit Lucinda Chowdhury, [facility] 02/07/23 Office Visit Leila Cade MD [facility] 12/25/22 Office Visit Lucinda Chowdhury, [facility] 11/08/22 Office Visit Leila Cade MD [facility] 05/03/22 Office Visit Leila Cade MD [facility] Showing recent visits within past 365 days and meeting all other requirements Future Appointments Date Type Provider Dept 06/13/23 Appointment Leila Cade MD [facility] Showing future appointments within next 90 days and meeting all other requirements documented in this encounter Plan of Treatment Upcoming Encounters Date Type Department Care Team (Late st Contact Info) Description 11/12/2024 1:45 PM CDT Office Visit [facility] Medical Group - Family Medicine - [place] [address] [place] [address] Andrew Hearn MD [address] [address] documented as of this encounter Visit Diagnoses [...] documented as of this encounter Care Teams Monitoring And Evaluation Advisor Relationship Specialty Start Date End Date Leila Cade MD [address] [place] [address] PCP - General Family Medicine 05/25/15 07/08/23 Lucinda Chowdhury, PAC [address] [place] [address] PCP - General Physician Corporate Compliance Director 07/09/23 01/02/24 Lucinda Chowdhury, [facility] [address] [place] [address] PCP - General Physician Corporate Compliance Director 01/20/24 02/26/24 Jostin Stein MD #[address] [address] PCP - General Family Medicine 03/04/24 03/04/24 Andrew Hearn MD #[address] [address] PCP - General Family Medicine 03/16/24 documented as of this encounter
--- OUTSIDE RECORDS SUMMARY | 2024-11-07 13:31 | XMS_ITS | Encounter Summary ---
Author Organization [facility] Address [address] [place] [address] Phone Care Team Providers Care Personnel Security Assistant Name Role Phone Leila Cade MD Primary Care Provider [phone] Lucinda Chowdhury [facility] Primary Care Provider + Lucinda Chowdhury PAC Primary Care Provider + Jostin Stein MD Primary Care Provider [phone] Andrew Hearn MD Primary Care Provider Reason for Visit * Reason Comments Medication Refill Encounter Details Date Type Department Care Team (Late st Contact Info) Description 05/30/2022 Refill [facility] Medical Group - Family Medicine [facility] #2 [place] [address] Leila Cade MD [address] [place] [address] Medication Refill Social History Tobacco Use Types [...] Telephone Encounter - Hedy Canas RN - 05/30/2022 2:56 PM CST Medication failed the protocol, provider to review and approve the medication order if appropriate. Requested Prescriptions Pending Prescriptions Disp Refills Xenical 120 MG Capsule [Pharmacy Med Name: XENICAL 120 MG CAPSULE] 90 Capsule 1 Sig: TAKE 1 CAPSULE BY MOUTH 3 TIMES A DAY WITH MEALS. Not Delegated - Anti-Obesity Agents Protocol Failed - 05/30/2022 12:44 PM Failed - This refill cannot be delegated Passed - Visit with relevant provider in past 12 months or upcoming 90 days Recent Visits Date Type Provider Dept 05/03/22 Office Visit Leila Cade MD [facility] 01/31/22 Office Visit Leila Cade MD [facility] 08/01/21 Office [facility] recent visits within past 365 days and meeting all other requirements Future Appointments No visits were found meeting these conditions. Showing future appointments within next 90 days and meeting all other requirements R RELATIONS OFFICER documented in this encounter Plan of Treatment Upcoming Encounters Date Type Department Care Team (Late st Contact Info) Description 11/12/2024 1:45 PM CDT Office Visit [facility] - [facility] Medicine - [place] [address] [place] [address] Andrew Hearn MD [address] [address] documented as of this encounter Visit Diagnoses [...] documented as of this encounter Care Teams Personnel Security Assistant Relationship Specialty Start Date End Date Leila Cade MD [address] [place] [address] PCP - General Family Medicine 05/25/15 07/08/23 Lucinda Chowdhury, [facility] [address] [place] [address] PCP - General Physician Rv Body Mechanic 07/09/23 01/02/24 Lucinda Chowdhury, [facility] [address] [place] [address] PCP - General Physician Rv Body Mechanic 01/20/24 02/26/24 Jostin Stein MD #[address] [address] PCP - General Family Medicine 03/04/24 03/04/24 Andrew Hearn MD #[address] [address] PCP - General Family Medicine 03/16/24 documented as of this encounter
--- OUTSIDE RECORDS SUMMARY | 2024-11-07 13:31 | XMS_ITS | Encounter Summary ---
Author Organization [facility] Address [address] [place] [address] Phone Care Team Providers Care Heating And Blending Supervisor Name Role Phone Andrew Hearn MD Primary Care Provider Reason for Visit * Reason Comments Medication Refill Encounter Details Date Type Department Care Team (Late st Contact Info) Description 05/18/2024 Refill [facility] Medicine [facility] #2 [place] [address] Andrew Hearn MD #[address] [address] Medication Refill Social History Tobacco Use Types [...] Telephone Encounter - Hedy Canas RN - 05/19/2024 10:13 AM CST Images from the original note were not included. traMADol HCl Dispensed Days Supply Quantity Provider Pharmacy TRAMADOL HCL 50 MG TABLET 05/12/2024 7 28 Each Andrew Hearn MD [facility]/pharmacy #[id number] - G... TRAMADOL HCL 50 MG TABLET 05/05/2024 7 28 Each Andrew Hearn MD [facility]/pharmacy #[id number] - G... Medication failed the protocol, provider to review and approve the medication order if appropriate. Requested Prescriptions Pending Prescriptions Disp Refills traMADol (ULTRAM) 50 MG Tablet [Pharmacy Med Name: TRAMADOL HCL 50 MG TABLET] 28 Tablet 0 Sig: TAKE 1 TABLET BY MOUTH EVERY 6 HOURS NEEDED FOR MODERATE OR SEVERE PAIN Not Delegated - Opioid Agonists Protocol Failed - 05/18/2024 1:50 PM Failed - This refill cannot be delegated Passed - Visit with relevant provider in past 12 months or upcoming 90 days Recent Visits Date Type Provider Dept 03/16/24 Office Visit Andrew Hearn MD [facility] 03/04/24 Office Visit Jostin Stein MD [facility] 01/28/24 Office Visit Andrew Hearn MD [facility] 07/12/23 Office Visit Agnieszka Fish APRN, SURGICAL SERVICES MANAGER [facility] Showing recent visits within past 365 days and meeting all other requirements Future Appointments Date Type Provider Dept 06/16/24 Appointment Andrew Hearn MD [facility] Showing future appointments within next 90 days and meeting all other requirements S AND DISTRIBUTION CLERK documented in this encounter Plan of Treatment Upcoming Encounters Date Type Department Care Team (Late st Contact Info) Description 11/12/2024 1:45 PM CDT Office Visit [facility] Medical Group - Family Medicine - [place] [address] [place] [address] Andrew Hearn MD [address] [address] documented as of this encounter Visit Diagnoses Diagnosis Right shoulder strain, initial encounter Primary osteoarthritis of both knees Primary localized osteoarthrosis, lower leg documented in this encounter Additional Health Concerns Infection Onset Date Last Indicated Resolved Time Respiratory Rule-Out 09/27/2024 09/27/2024 025 3:40 PM CDT COVID - 19 09/27/2024 09/27/2024 09/27/2024 3:39 PM CDT Assessment Noted Time PHQ-9 Depression Total Score: 0 01/25/20 21 11:00 AM CDT documented as of this encounter Care Teams Heating And Blending Supervisor Relationship Specialty Start Date End Date Andrew Hearn MD #[address] [address] PCP - General Family Medicine 03/16/24 documented as of this encounter
--- OUTSIDE RECORDS SUMMARY | 2024-11-07 13:31 | XMS_ITS | Encounter Summary ---
Author Organization [facility] Address [address] [place] [address] Phone Care Team Providers Care Station Manager Name Role Phone Leila Cade MD Primary Care Provider Lucinda Chowdhury PAC Primary Care Provider + Lucinda Chowdhury PAC Primary Care Provider + Jostin Stein MD Primary Care Provider [phone] Andrew Hearn MD Primary Care Provider Reason for Visit * Reason Comments Medication Refill Encounter Details Date Type Department Care Team (Late st Contact Info) Description 06/27/2021 Refill [facility] Medical Group - Family Medicine [facility] #2 [place] [address] Lucinda Chowdhury PAC [address] [place] [address] Medication Refill Social History Tobacco Use Types [...] Telephone Encounter - Hedy Canas RN - 06/28/2021 9:46 AM CST Medication failed the protocol, provider to review and approve the medication order if appropriate. Requested Prescriptions Pending Prescriptions Disp Refills Senna-Time 8.6 MG Tablet [Pharmacy Med Name: SENNA-TIME 8.6 MG TABLET] 120 Tablet 0 Sig: TAKE 2 TABLETS BY MOUTH 2 TIMES DAILY NEEDED FOR CONSTIPATION - 2ND LINE. Laxatives Protocol Failed - 06/28/2021 9:36 AM Failed - Up to date with colon cancer screening Health Maintenance Passed - Visit with relevant provider in past 12 months or upcoming 90 days Recent Visits Date Type Provider Dept 04/27/21 Office Visit Lucinda Chowdhury PAC [facility] 01/24/21 Office Visit Lucinda Chowdhury PAC [facility] 08/11/20 Office Visit Leila Cade MD [facility] Showing recent visits within past 365 days and meeting all other requirements Future Appointments Date Type Provider Dept 08/01/21 Appointment Leila Cade MD [facility] Showing future appointments within next 90 days and meeting all other requirements Xenical 120 MG Capsule [Pharmacy Med Name: XENICAL 120 MG CAPSULE] 90 Capsule 1 Sig: TAKE 1 CAPSULE BY MOUTH 3 TIMES A DAY WITH MEALS Not Delegated - Anti-Obesity Agents Protocol Failed - 06/28/2021 9:36 AM Failed - This refill cannot be delegated Passed - Visit with relevant provider in past 12 months or upcoming 90 days Recent Visits Date Type Provider Dept 04/27/21 Office Visit Lucinda Chowdhury PAC [facility] 01/24/21 Office Visit Lucinda Chowdhury PAC [facility] 08/11/20 Office Visit Leila Cade MD [facility] Showing recent visits within past 365 days and meeting all other requirements Future Appointments Date Type Provider Dept 08/01/21 Appointment Leila Cade MD [facility] Showing future appointments within next 90 days and meeting all other requirements Refused Prescriptions Disp Refills azelastine (ASTELIN) 0.1 % Solution [Pharmacy Med Name: AZELASTINE 0.1% (137 MCG) SPRY] 3 Sig: USE 2 SPRAYS IN EACH NOSTRIL TWICE A DAY DIRECTED Nasal Preparations - Other Protocol Failed - 06/28/2021 9:36 AM Failed - Active on medication list Passed - Visit with authorizing provider in past 12 months or upcoming 90 days Recent Visits Date Type Provider Dept 04/27/21 Office Visit Lucinda Chowdhury, PAC [facility] 01/24/21 Office Visit Lucinda Chowdhury, [facility] 08/11/20 Office Visit Leila Cade MD [facility] Showing recent visits within past 365 days and meeting all other requirements Future Appointments Date Type Provider Dept 08/01/21 Appointment Leila Cade MD [facility] Showing future appointments within next 90 days and meeting all other requirements ER ACCOUNT MANAGER * Telephone Encounter - Hedy Canas RN - 06/28/2021 9:45 AM CST Name from pharmacy: AZELASTINE 0.1% (137 MCG) SPRY Will file in chart as: azelastine (ASTELIN) 0.1 % Solution The original prescription was discontinued on 11/03/2019 by Leila Cade MD for the followingreason: Therapy completed. Fluticasone NS is noted on patient's med list ER ACCOUNT MANAGER documented in this encounter Plan of Treatment Upcoming Encounters Date Type Department Care Team (Late st Contact Info) Description 11/12/2024 1:45 PM CDT Office Visit [facility] Medical Group - Family Medicine - [place] [address] [place] [address] Andrew Hearn MD [address] [address] documented as of this encounter Visit Diagnoses [...] documented as of this encounter Care Teams Station Manager Relationship Specialty Start Date End Date Leila Cade MD #2 [place] [address] PCP - General Family Medicine 05/25/15 07/08/23 Lucinda Chowdhury, [facility] [address] [place] [address] PCP - General Physician Tube Knitter 07/09/23 01/02/24 Lucinda Chowdhury, PAC [address] [place] [address] PCP - General Physician Tube Knitter 01/20/24 02/26/24 Jostin Stein MD #[address] [address] PCP - General Family Medicine 03/04/24 03/04/24 Andrew Hearn MD #[address] [address] PCP - General Family Medicine 03/16/24 documented as of this encounter
--- OUTSIDE RECORDS SUMMARY | 2024-11-07 13:31 | XMS_ITS | Encounter Summary ---
Author Organization [facility] Address [address] [place] [address] Phone Care Team Providers Care Lands Resource Manager Name Role Phone Leila Cade MD Primary Care Provider [phone] Lucinda Chowdhury PAC Primary Care Provider + Lucinda Chowdhury PAC Primary Care Provider + Jostin Stein MD Primary Care Provider [phone] Andrew Hearn MD Primary Care Provider Reason for Visit * Reason Comments Medication Refill Encounter Details Date Type Department Care Team (Late st Contact Info) Description 01/11/2021 Refill [facility] - Family Medicine [facility] #2 [place] [address] Lucinda Chowdhury PAC [address] [place] [address] Medication Refill Social History Tobacco Use Types [...] encounter Miscellaneous Notes * Telephone Encounter - Liss Marti RN - 01/12/2021 8:49 AM CDT The original prescription was discontinued on 11/03/2019 by Leila Cade MD for the followingreason: Therapy completed. Renewing this prescription may not be appropriate. Liss RN Sig: USE 2 SPRAYS IN EACH NOSTRIL TWICE A DAY DIRECTED documented in this encounter Plan of Treatment Upcoming Encounters Date Type Department Care Team (Late st Contact Info) Description 11/12/2024 1:45 PM CDT Office Visit [facility] - Family [facility] #2 [place] [address] Andrew Hearn MD #[address] [address] documented as of this encounter Visit Diagnoses [...] Total Score: 0 08/04/19 20 1:54 PM DUPLICATOR PUNCH OPERATOR documented as of this encounter Care Teams Lands Resource Manager Relationship Specialty Start Date End Date Leila Cade MD [address]2 [place] [address] PCP - General Family Medicine 05/25/15 07/08/23 Lucinda Chowdhury, [facility] [address] [place] [address] PCP - General Physician Policy Change Clerk 07/09/23 01/02/24 Lucinda Chowdhury, [facility] [address] [place] [address] PCP - General Physician Policy Change Clerk 01/20/24 02/26/24 Jostin Stein MD #[address] [address] PCP - General Family Medicine 03/04/24 03/04/24 Andrew Hearn MD #[address] [address] PCP - General Family Medicine 03/16/24 documented as of this encounter
--- OUTSIDE RECORDS SUMMARY | 2024-11-07 13:31 | XMS_ITS | Encounter Summary ---
Author Organization [facility] Address [address] [place] [address] Phone Care Team Providers Care Shipping Agent Name Role Phone Leila Cade MD Primary Care Provider [phone] Lucinda Chowdhury PAC Primary Care Provider + Lucinda Chowdhury PAC Primary Care Provider + Jostin Stein MD Primary Care Provider [phone] Andrew Hearn MD Primary Care Provider [phone] Reason for Visit * Reason Comments Medication Refill Encounter Details Date Type Department Care Team (Late st Contact Info) Description 03/23/2021 Refill [facility] - Family Medicine [facility] #2 [place] [address] Lucinda Chowdhury PAC [address]2 [place] [address] Medication Refill Social History Tobacco Use Types [...] on file documented as of this encounter Plan of Treatment Upcoming Encounters Date Type Department Care Team (Late st Contact Info) Description 11/12/2024 1:45 PM CDT Office Visit [facility] #2 [place] [address] Andrew Hearn MD #[address] [address] documented as of this encounter Visit Diagnoses [...] documented as of this encounter Care Teams Shipping Agent Relationship Specialty Start Date End Date Leila Cade MD [address]2 [place] [address] PCP - General Family Medicine 05/25/15 07/08/23 Lucinda Chowdhury, [facility] [address] [place] [address] PCP - General Physician Slide Fastener Chain Assembler 07/09/23 01/02/24 Lucinda Chowdhury PAC [address] [place] [address] PCP - General Physician Slide Fastener Chain Assembler 01/20/24 02/26/24 Jostin Stein MD #[address] [address] PCP - General Family Medicine 03/04/24 03/04/24 Andrew Hearn MD #[address] [address] PCP - General Family Medicine 03/16/24 documented as of this encounter
--- OUTSIDE RECORDS SUMMARY | 2024-11-07 13:31 | XMS_ITS | Encounter Summary ---
Author Organization [facility] Address [address] [place] [address] Phone Care Team Providers Care Supervisor Lens Generating Name Role Phone Leila Cade MD Primary Care Provider [phone] Lucinda Chowdhury [facility] Primary Care Provider + Lucinda Chowdhury PAC Primary Care Provider + Jostin Stein MD Primary Care Provider [phone] Andrew Hearn MD Primary Care Provider [phone] Reason for Visit * Reason Comments Medication Refill Encounter Details Date Type Department Care Team (Late st Contact Info) Description 02/06/2023 Refill [facility] - Family Medicine [facility] #2 [place] [address] Leila Cade MD #2 [place] [address] Medication Refill Social History Tobacco Use Types [...] Telephone Encounter - Hedy Canas RN - 02/07/2023 12:21 PM CDT Last Rx and fell off th medication list Medication failed the protocol, provider to review and approve the medication order if appropriate. Requested Prescriptions Pending Prescriptions Disp Refills lubiprostone (AMITIZA) 8 MCG Capsule [Pharmacy Med Name: LUBIPROSTONE 8 MCG CAPSULE] 60 Capsule 0 Sig: Take 1 Capsule by mouth 2 times daily (with meals). IBS-C/CIC Protocol Failed - 02/06/2023 9:31 PM Failed - Active on medication list Passed - Visit with relevant provider in past 12 months or upcoming 90 days Recent Visits Date Type Provider Dept 12/25/22 Office Visit Lucinda Chowdhury PAC [facility] 11/08/22 Office Visit Leila Cade MD [facility] 05/03/22 Office Visit Leila Cade MD [facility] Showing recent visits within past 365 days and meeting all other requirements Today's Visits Date Type Provider Dept 02/07/23 Appointment Leila Cade MD [facility] Showing today's visits and meeting all other requirements Future Appointments No visits were found meeting these conditions. Showing future appointments within next 90 days and meeting all other requirements documented in this encounter Plan of Treatment Upcoming Encounters Date Type Department Care Team (Late st Contact Info) Description 11/12/2024 1:45 PM CDT Office Visit [facility] - Family Medicine - [place] [address] [place] [id number] Andrew Hearn MD #[address] [address] documented as of this encounter Visit Diagnoses [...] documented as of this encounter Care Teams Supervisor Lens Generating Relationship Specialty Start Date End Date Leila Cade MD #2 [place] [address] PCP - General Family Medicine 05/25/15 07/08/23 Lucinda Chowdhury, [facility] [address] [place] [address] PCP - General Physician Machine Setter 07/09/23 01/02/24 Lucinda Chowdhury, [facility] [address] [place] [address] PCP - General Physician Machine Setter 01/20/24 02/26/24 Jostin Stein MD #[address] [address] PCP - General Family Medicine 03/04/24 03/04/24 Andrew Hearn MD #[address] [address] PCP - General Family Medicine 03/16/24 documented as of this encounter
--- OUTSIDE RECORDS SUMMARY | 2024-11-07 13:31 | XMS_ITS | Encounter Summary ---
Author Organization [facility] Address [address] [place] [address] Phone Care Team Providers Care Crusher Setter Name Role Phone Andrew Hearn MD Primary Care Provider [phone] Reason for Visit * Reason Comments Medication Refill Encounter Details Date Type Department Care Team (Late st Contact Info) Description 07/26/2024 Refill [facility] - Family Medicine [facility] #2 [place] [address] Andrew Hearn MD #[address] [address] Medication Refill Social History Tobacco Use Types [...] encounter Miscellaneous Notes * Telephone Encounter - Tamara Tsai RN - 07/27/2024 10:14 AM CST Medication failed the protocol, provider to review and approve the medication order if appropriate. Requested Prescriptions Pending Prescriptions Disp Refills Tirzepatide-Weight Management (Zepbound) 5 MG/0.5ML Solution Auto-injector [Pharmacy Med Name: ZEPBOUND 5 MG/0.5 ML PEN] 2 mL 1 Sig: INJECT 5 MG BY SUBCUTANEOUS ROUTE ONCE A WEEK. Not Delegated - Anti-Obesity Agents Protocol Failed - 07/27/2024 10:14 AM Failed - This refill cannot be delegated Passed - Visit with relevant provider in past 12 months or upcoming 90 days Recent Visits Date Type Provider Dept 07/07/24 Office Visit Andrew Hearn MD [facility] [place] 03/16/24 Office Visit Andrew Hearn MD [facility] 03/04/24 Office Visit Jostin Stein MD [facility] [place] 01/28/24 Office Visit Andrew Hearn MD [facility] [place] Showing recent visits within past 365 days and meeting all other requirements Future Appointments Date Type Provider Dept 10/06/24 Appointment Andrew Hearn MD [facility] [place] Showing future appointments within next 90 days and meeting all other requirements PLANT OPERATOR documented in this encounter Plan of Treatment Upcoming Encounters Date Type Department Care Team (Late st Contact Info) Description 11/12/2024 1:45 PM CDT Office Visit [facility] - Family Medicine [facility] #2 [place] [address] Andrew Hearn MD [address] [address] documented as of this encounter Visit Diagnoses Not on filedocumented in this encounter Additional Health Concerns Infection Onset Date Last Indicated Resolved Time Respiratory Rule-Out 09/27/2024 09/27/2024 025 3:40 PM CDT COVID - 19 09/27/2024 09/27/2024 09/27/2024 3:39 PM CDT Assessment Noted Time PHQ-9 Depression Total Score: 0 01/25/20 21 11:00 AM CDT documented as of this encounter Care Teams Crusher Setter Relationship Specialty Start Date End Date Andrew Hearn MD #[address] [address] PCP - General Family Medicine 03/16/24 documented as of this encounter
--- OUTSIDE RECORDS SUMMARY | 2024-11-07 13:31 | XMS_ITS | Encounter Summary ---
Author Organization [facility] Address [address] [place] [address] Phone Care Team Providers Care Construction Or Leak Gang Laborer Name Role Phone Leila Cade MD Primary Care Provider [phone] [facility] Primary Care Provider + Lucinda Chowdhury PAC Primary Care Provider + Jostin Stein MD Primary Care Provider [phone] Andrew Hearn MD Primary Care Provider Reason for Visit * Reason Comments Medication Refill Encounter Details Date Type Department Care Team (Late st Contact Info) Description 03/07/2023 Refill [facility] - Family Medicine [facility] #2 [place] [address] Leila Cade MD [address]2 [place] [address] Medication Refill Social History Tobacco Use Types [...] encounter Miscellaneous Notes * Telephone Encounter - Paulette Johnston RN - 03/08/2023 12:30 PM CDT Medication failed the protocol, provider to review and approve the medication order if appropriate. Requested Prescriptions Pending Prescriptions Disp Refills Klor-Con M20 20 MEQ Tablet Controlled Release [Pharmacy Med Name: KLOR-CON M20 TABLET] 180 Tablet 1 Sig: TAKE 1 TABLET BY MOUTH TWICE A DAY Potassium Supplement Protocol Failed - 03/07/2023 6:25 PM Failed - Normal serum potassium in past 12 months POTASSIUM Date Value Ref Range Status 11/01/2022 3.4 (L) 3.5 - 5.1 mmol/L Final Passed - Visit with relevant provider in past 12 months or upcoming 90 days Recent Visits Date Type Provider Dept 02/07/23 Office Visit Leila Cade MD [facility] 12/25/22 Office Visit Lucinda Chowdhury PAC [facility] 11/08/22 Office Visit Leila Cade MD [facility] 05/03/22 Office Visit Leila Cade MD [facility] [place] Showing recent visits within past 365 days and meeting all other requirements Future Appointments No visits were found meeting these conditions. Showing future appointments within next 90 days and meeting all other requirements traMADol (ULTRAM) 50 MG Tablet [Pharmacy Med Name: TRAMADOL HCL 50 MG TABLET] 120 Tablet 0 Sig: TAKE 1 TABLET BY MOUTH EVERY 6 HOURS FOR MODERATE OR MORE SEVERE PAIN Not Delegated - Opioid Agonists Protocol Failed - 03/07/2023 6:25 PM Failed - This refill cannot be delegated Passed - Visit with relevant provider in past 12 months or upcoming 90 days Recent Visits Date Type Provider Dept 02/07/23 Office Visit Leila Cade MD [facility] [place] 12/25/22 Office Visit Lucinda Chowdhury, [facility] 11/08/22 [facility]22 Office Visit [facility] Showing recent visits within past 365 days and meeting all other requirements Future Appointments No visits were found meeting these conditions. Showing future appointments within next 90 days and meeting all other requirements * Telephone Encounter - Paulette Johnston RN - 03/08/2023 12:29 PM CDT Per [place] PDMP last fill date 02/08/23. documented in this encounter Plan of Treatment Upcoming Encounters Date Type Department Care Team (Late st Contact Info) Description 11/12/2024 1:45 PM CDT Office Visit [facility] - Family Medicine [facility] [address] [place] [address] Andrew Hearn MD [facility]2 [facility] [address] documented as of this encounter Visit Diagnoses [...] documented as of this encounter Care Teams Construction Or Leak Gang Laborer Relationship Specialty Start Date End Date Leila Cade MD #2 [place] [address] PCP - General Family Medicine 05/25/15 07/08/23 Lucinda Chowdhury, PAC [address] [place] [address] PCP - General Physician Store Stock Help 07/09/23 01/02/24 Lucinda Chowdhury, [facility] [address] [place] [address] PCP - General Physician Store Stock Help 01/20/24 02/26/24 Jostin Stein MD #[address] [address] PCP - General Family Medicine 03/04/24 03/04/24 Andrew Hearn MD #[address] [address] PCP - General Family Medicine 03/16/24 documented as of this encounter
--- OUTSIDE RECORDS SUMMARY | 2024-11-07 13:31 | XMS_ITS | Encounter Summary ---
Author Organization [facility] Address [address] [place] [address] Phone Care Team Providers Care Product Safety Expert Name Role Phone Leila Cade MD Primary Care Provider [phone] Lucinda Chowdhury [facility] Primary Care Provider + Lucinda Chowdhury PAC Primary Care Provider + Jostin Stein MD Primary Care Provider [phone] Andrew Hearn MD Primary Care Provider [phone] Reason for Visit * Reason Comments Medication Refill Encounter Details Date Type Department Care Team (Late st Contact Info) Description 05/21/2023 Refill [facility] - Family Medicine [facility] #2 [place] [address] Leila Cade MD #2 [place] [address] Medication Refill Social History Tobacco Use Types [...] encounter Miscellaneous Notes * Telephone Encounter - Laureen Canasrussel Camacho RN - 05/22/2023 7:53 AM CST PDMP Tramadol 04/12/23 - T#3 04/22/23 Medication failed the protocol, provider to review and approve the medication order if appropriate. Requested Prescriptions Pending Prescriptions Disp Refills traMADol (ULTRAM) 50 MG Tablet [Pharmacy Med Name: TRAMADOL HCL 50 MG TABLET] 120 Tablet 0 Sig: TAKE 1 TABLET BY MOUTH EVERY 6 HOURS FOR MODERATE OR MORE SEVERE PAIN Not Delegated - Opioid Agonists Protocol Failed - 05/21/2023 1:47 PM Failed - This refill cannot be [...] 90 days and meeting all other requirements Acetaminophen-Codeine 300-60 MG Tablet [Pharmacy Med Name: ACETAMINOPHEN-COD #4 TABLET] 120 Tablet 0 Sig: TAKE 1 TABLET BY MOUTH FOUR TIMES A DAY Not Delegated - Opioid Combinations Protocol Failed - 05/21/2023 1:47 PM Failed - This refill cannot be delegated Passed - Visit with relevant provider in past 12 months or upcoming 90 days Recent Visits Date Type Provider Dept 03/21/23 Office Visit Lucinda Chowdhury PAC [facility] 02/07/23 Office Visit Leila Cade MD [facility] 12/25/22 Office Visit Lucinda Chowdhury [facility] [place] 11/08/22 Office Visit Leila Cade MD [facility] Showing recent visits within past 365 days and meeting all other requirements Future Appointments Date Type Provider Dept 06/13/23 Appointment Leila Cade MD [facility] Showing future appointments within next 90 days and meeting all other requirements Refused Prescriptions Disp Refills potassium chloride SA (Klor-Con M20) 20 MEQ Tablet Controlled Release 90 Tablet 1 Sig: Take 1 Tablet by mouth 2 times daily. Potassium Supplement Protocol Failed - 05/21/2023 1:47 PM Failed - Normal serum potassium in [...] [facility] 12/25/22 Office Visit Lucinda Chowdhury [facility] [place] 11/08/22 Office Visit Leila Cade MD [facility] Showing recent visits within past 365 days and meeting all other requirements Future Appointments Date Type Provider Dept 06/13/23 Appointment Leila Cade MD [facility] Showing future appointments within next 90 days and meeting all other requirements candesartan (ATACAND) 8 MG Tablet [Pharmacy Med Name: CANDESARTAN CILEXETIL 8 MG TAB] 90 Tablet 1 Sig: TAKE 1 TABLET BY MOUTH EVERY DAY ARB Protocol Passed - 05/21/2023 1:47 PM Passed - Serum potassium on record in past 12 months POTASSIUM Date Value Ref Range Status 11/01/2022 3.4 (L) 3.5 - 5.1 mmol/L Final Passed - BP on record in the past year Clinician-entered: BP Readings from Last 3 Encounters: 03/21/23 128/88 02/07/23 126/80 01/11/23 (!) 169/111 Patient-entered: No data recorded Passed - Visit with relevant provider in past year or upcoming 90 days Recent Visits Date Type Provider Dept 03/21/23 Office Visit Lucinda Chowdhury PAC [facility] 02/07/23 Office Visit Leila Cade MD [facility] 12/25/22 Office Visit Lucinda Chowdhury PAC [facility] 11/08/22 Office Visit Leila Cade MD [facility] Showing recent visits within past 365 days and meeting all other requirements Future Appointments Date Type Provider Dept 06/13/23 Appointment Leila Cade MD [facility] Showing future appointments within next 90 days and meeting all other requirements Passed - GFR on record in past 12 months GFR, EST. Date Value Ref Range Status 11/01/2022 >60 >=60 Final hydroCHLOROthiazide 25 MG Tablet [Pharmacy Med Name: HYDROCHLOROTHIAZIDE 25 MG TAB] 90 Tablet 1 Sig: TAKE 1 TABLET BY MOUTH EVERY DAY Diuretics Protocol Passed - 05/21/2023 1:47 PM Passed - Serum potassium on record [...] Clinician-entered: BP Readings from Last 3 Encounters: 03/21/23 128/88 02/07/23 126/80 01/11/23 (!) 169/111 Patient-entered: No data recorded Passed - Visit with relevant provider in past 12 months or upcoming 90 days Recent Visits Date Type Provider Dept 03/21/23 Office Visit Lucinda Chowdhury PAC [facility] 02/07/23 Office Visit Leila Cade MD [facility] 12/25/22 Office Visit Lucinda Chowdhury PAC [facility] 11/08/22 Office Visit Leila Cade MD [facility] Showing recent visits within past 365 days and meeting all other requirements Future Appointments Date Type Provider Dept 06/13/23 Appointment Leila Cade MD [facility] Showing future appointments within next 90 days and meeting all other requirements Passed - GFR on record in past 12 months GFR, EST. Date Value Ref Range Status 11/01/2022 >60 >=60 Final ER MANAGER * Telephone Encounter - Hedy Canas RN - 05/22/2023 7:34 AM CST Images from the original note were not included. Candesartan Cilexetil Dispensed Days Supply Quantity Provider Pharmacy CANDESARTAN CILEXETIL 8 MG TAB 04/23/2023 90 90 Each Leila Cade MD [facility]/pharmacy #[id number] - A... hydroCHLOROthiazide Dispensed Days Supply Quantity Provider Pharmacy HYDROCHLOROTHIAZIDE 25 MG TAB 04/18/2023 90 90 Each Leila Cade MD [facility]/pharmacy #[id number] - A... ER MANAGER documented in this encounter Plan of Treatment Upcoming Encounters Date Type Department Care Team (Late st Contact Info) Description 11/12/2024 1:45 PM CDT Office Visit [facility] #2 [place] [address] Andrew Hearn MD #[address] [address] documented as of this encounter Visit Diagnoses [...] documented as of this encounter Care Teams Product Safety Expert Relationship Specialty Start Date End Date Leila Cade MD #2 [place] [address] PCP - General Family Medicine 05/25/15 07/08/23 Lucinda Chowdhury, PAC [address] [place] [address] PCP - General Physician Soils Engineer 07/09/23 01/02/24 Lucinda Chowdhury, [facility] [address] [place] [address] PCP - General Physician Soils Engineer 01/20/24 02/26/24 Jostin Stein MD #[address] [address] PCP - General Family Medicine 03/04/24 03/04/24 Andrew Hearn MD #[address] [address] PCP - General Family Medicine 03/16/24 documented as of this encounter
--- OUTSIDE RECORDS SUMMARY | 2024-11-07 13:31 | XMS_ITS | Encounter Summary ---
Author Organization [facility] Address [address] [place] [address] Phone Care Team Providers Care Ancillary Services Manager Name Role Phone Leila Cade MD Primary Care Provider [phone] Lucinda Chowdhury PAC Primary Care Provider + Lucinda Chowdhury PAC Primary Care Provider + Jostin Stein MD Primary Care Provider [phone] Andrew Hearn MD Primary Care Provider [phone] Reason for Visit * Reason Comments Medication Refill Encounter Details Date Type Department Care Team (Late st Contact Info) Description 07/30/2021 Refill [facility] Group - Family Medicine [facility] #2 [place] [address] Lucinda Chowdhury PAC [address]2 [place] [address] Medication Refill Social History Tobacco Use Types [...] COVID-19? 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 #[address] [place] [address] Andrew Hearn MD [address] [address] documented as of this encounter Visit Diagnoses [...] documented as of this encounter Care Teams Ancillary Services Manager Relationship Specialty Start Date End Date Leila Cade MD [facility] [facility] [address] PCP - General Family Medicine 05/25/15 07/08/23 Lucinda Chowdhury, PAC [address] [place] [address] PCP - General Physician Ekg Manager 07/09/23 01/02/24 Lucinda Chowdhury, [facility] [address] [place] [address] PCP - General Physician Ekg Manager 01/20/24 02/26/24 Jostin Stein MD #[address] [address] PCP - General Family Medicine 03/04/24 03/04/24 Andrew Hearn MD #[address] [address] PCP - General Family Medicine 03/16/24 documented as of this encounter
--- OUTSIDE RECORDS SUMMARY | 2024-11-07 13:31 | XMS_ITS | Encounter Summary ---
Author Organization [facility] Address [address] [place] [address] Phone Care Team Providers Care Facility Technician Name Role Phone Andrew Hearn MD Primary Care Provider Reason for Visit * Reason Comments Medication Refill Encounter Details Date Type Department Care Team (Late st Contact Info) Description 04/19/2024 Refill [facility] #2 [place] [id number] Andrew Hearn MD #[address] [address] Medication Refill Social History Tobacco Use Types [...] Telephone Encounter - Missy Rivera RN - 04/19/2024 3:12 PM CDT Medication failed the protocol, provider to review and approve the medication order if appropriate. Requested Prescriptions Pending Prescriptions Disp Refills diclofenac (CATAFLAM) 50 MG Tablet [Pharmacy Med Name: DICLOFENAC POT 50 MG TABLET] 20 Tablet 0 Sig: TAKE 1 TABLET BY MOUTH TWICE A DAY NSAIDs Protocol Failed - 04/19/2024 1:25 PM Failed - Normal serum creatinine in past 12 months CREATININE, BLOOD Date Value Ref Range Status 04/13/2024 1.30 (H) 0.60 - 1.00 mg/dL Final Failed - No matching NSAID med order in past 45 days Matching medication order placed on 04/03/2024 12:07 PM Order [id number]: diclofenac (CATAFLAM) 50 MG Tablet (For orders placed between 03/05/2024 3:12 PM and 04/19/2024 3:12 PM) Passed - Visit with relevant provider in past 12 months or upcoming 90 days Recent Visits Date Type Provider Dept 03/16/24 Office Visit Andrew Hearn MD [facility] [place] 03/04/24 Office Visit Jostin Stein MD [facility] 01/28/24 Office Visit Andrew Hearn MD [facility] 07/12/23 Office Visit Agnieszka Fish APRN, LAWN MOWER REPAIRER [facility] Showing recent visits within past 365 days and meeting all other requirements Future Appointments Date Type Provider Dept 06/16/24 Appointment Andrew Hearn MD [facility] Showing future appointments within next 90 days and meeting all other requirements Passed - AST less than 55 or ALT less than 90 in past 12 months SGOT (AST) Date Value Ref Range Status 03/16/2024 28 5 - 34 U/L Final SGPT (ALT) Date Value Ref Range Status 03/16/2024 35 0 - 55 U/L Final Passed - HGB greater than 10 or HCT greater than 30 in past 12 months HEMOGLOBIN (HGB) Date Value Ref Range Status 03/16/2024 12.1 12.0 - 15.8 g/dL Final HEMATOCRIT (HCT) Date Value Ref Range Status 03/16/2024 38.2 36.0 - 47.0 % Final documented in this encounter Plan of Treatment Upcoming Encounters Date Type Department Care Team (Late st Contact Info) Description 11/12/2024 1:45 PM CDT Office Visit [facility] - [facility] Medicine [facility] [address] [place] [address] Andrew Hearn MD #2 [facility] [place] [address] documented as of this encounter Visit Diagnoses Not on filedocumented in this encounter Additional Health Concerns Infection Onset Date Last Indicated Resolved Time Respiratory Rule-Out 09/27/2024 09/27/2024 025 3:40 PM CDT COVID - 19 09/27/2024 09/27/2024 09/27/2024 3:39 PM CDT Assessment Noted Time PHQ-9 Depression Total Score: 0 01/25/20 21 11:00 AM CDT documented as of this encounter Care Teams Facility Technician Relationship Specialty Start Date End Date Andrew Hearn MD [address] [address] PCP - General Family Medicine 03/16/24 documented as of this encounter
--- OUTSIDE RECORDS SUMMARY | 2024-11-07 13:31 | XMS_ITS | Encounter Summary ---
Author Organization [facility] Address [address] [place] [address] Phone Care Team Providers Care Scientific Systems Analyst Name Role Phone Leila Cade MD Primary Care Provider [phone] [facility] Primary Care Provider + Lucinda Chowdhury PAC Primary Care Provider + Jostin Stein MD Primary Care Provider [phone] Andrew Hearn MD Primary Care Provider [phone] Reason for Visit * Reason Comments Medication Refill Encounter Details Date Type Department Care Team (Late st Contact Info) Description 01/18/2023 Refill [facility] - Family Medicine [facility] #2 [place] [address] Leila Cade MD [address]2 [place] [address] Medication Refill Social History Tobacco Use Types [...] suspected to have Coronavirus/COVID-19? No / Unsure 01/11/2023 4:30 PM CDT documented as of this encounter Miscellaneous Notes * Telephone Encounter - Hedy Canas RN - 01/21/2023 7:57 AM CDT PDMP 12/20/22 Medication failed the protocol, provider to review and approve the medication order if appropriate. Requested Prescriptions Pending Prescriptions Disp Refills Acetaminophen-Codeine 300-60 MG Tablet [Pharmacy Med Name: ACETAMINOPHEN-COD #4 TABLET] 120 Tablet 0 Sig: TAKE 1 TABLET BY MOUTH 4 TIMES A DAY NEEDED FOR ARTHRITIS PAIN Not Delegated - Opioid Combinations Protocol Failed - 01/18/2023 3:30 PM Failed - This refill cannot be delegated Passed - Visit with relevant provider in past 12 months or upcoming 90 days Recent Visits Date Type Provider Dept 12/25/22 Office Visit Lucinda Chowdhury PAC [facility] [place] 11/08/22 Office Visit Leila Cade MD [facility] [place] 05/03/22 Office Visit Leila Cade MD [facility] 01/31/22 Office Visit [facility] Showing recent visits within past 365 days and meeting all other requirements Future Appointments Date Type Provider Dept 02/07/23 Appointment Leila Cade MD [facility] [place] Showing future appointments within next 90 days and meeting all other requirements documented in this encounter Plan of Treatment Upcoming Encounters Date Type Department Care Team (Late st Contact Info) Description 11/12/2024 1:45 PM CDT Office Visit [facility] Medical Group - Family Medicine - [place] [address] [place] [address] Andrew Hearn MD #[address] [address] documented as of this encounter Visit Diagnoses [...] documented as of this encounter Care Teams Scientific Systems Analyst Relationship Specialty Start Date End Date Leila Cade MD #2 [place] [address] PCP - General Family Medicine 05/25/15 07/08/23 Lucinda Chowdhury, [facility] [address] [place] [address] PCP - General Physician Bellman Captain 07/09/23 01/02/24 Lucinda Chowdhury, [facility] [address] [place] [address] PCP - General Physician Bellman Captain 01/20/24 02/26/24 Jostin Stein MD #[address] [address] PCP - General Family Medicine 03/04/24 03/04/24 Andrew Hearn MD #[address] [address] PCP - General Family Medicine 03/16/24 documented as of this encounter
--- OUTSIDE RECORDS SUMMARY | 2024-11-07 13:31 | XMS_ITS | Encounter Summary ---
Author Organization [facility] Address [address] [place] [address] Phone Care Team Providers Care Bi Lead Name Role Phone Lucinda Chowdhury Primary Care Provider + Lucinda Chowdhury Primary Care Provider + Jostin Stein MD Primary Care Provider [phone] Andrew Hearn MD Primary Care Provider [phone] Reason for Visit * Reason Comments Medication Refill Encounter Details Date Type Department Care Team (Late st Contact Info) Description 12/12/2023 Refill [facility] #2 [place] [phone] Leila Cade MD [address]2 [place] [address] Medication Refill Social History Tobacco Use Types [...] Telephone Encounter - Hedy Canas RN - 12/13/2023 7:55 AM CDT Medication(s) refilled and signed per [facility] Chronic Medication Refill Standing Order for Pediatricand Adult Patients. Requested Prescriptions Pending Prescriptions Disp Refills Vitamin D3 2000 UNIT Capsule [Pharmacy Med Name: VITAMIN D3 2,000 UNIT SOFTGEL] 90 Capsule 1 Sig: TAKE 1 CAPSULE BY MOUTH EVERY DAY Vitamin Supplements (Adult) Protocol Passed - 12/12/2023 1:55 PM Passed - Visit with relevant provider in past 12 months or upcoming 90 days Recent Visits Date Type Provider Dept 07/12/23 Office Visit Agnieszka Fsih APRN, LUZMA [facility] 03/21/23 Office Visit Lucinda Chowdhury PAC [facility] 02/07/23 Office Visit Leila Cade MD [facility] 12/25/22 Office Visit Lucinda Chowdhury, ELDER [facility] Showing recent visits within past 365 days and meeting all other requirements Future Appointments No visits were found meeting these conditions. Showing future appointments within next 90 days and meeting all other requirements Passed - Vitamin D dose not greater than 1.25mg documented in this encounter Plan of Treatment Upcoming Encounters Date Type Department Care Team (Late st Contact Info) Description 11/12/2024 1:45 PM CDT Office Visit [facility] Medical Group - Family Medicine - [place] [address] [place] [address] Andrew Hearn MD [address] [address] documented as of this encounter Visit Diagnoses [...] documented as of this encounter Care Teams Bi Lead Relationship Specialty Start Date End Date Lucinda Chowdhury, PAC [address] [place] [address] PCP - General Physician Coverer 07/09/23 01/02/24 Lucinda Chowdhury, [facility] [address] [place] [address] PCP - General Physician Coverer 01/20/24 02/26/24 Jostin Stein MD #[address] [address] PCP - General Family Medicine 03/04/24 03/04/24 Andrew Hearn MD #[address] [address] PCP - General Family Medicine 03/16/24 documented as of this encounter
--- OUTSIDE RECORDS SUMMARY | 2024-11-07 13:31 | XMS_ITS | Encounter Summary ---
Author Organization [facility] Address [address] [place] [address] Phone Care Team Providers Care It Desktop Support Technician Name Role Phone Leila Cade MD Primary Care Provider [phone] Lucinda Chowdhury [facility] Primary Care Provider + Lucinda Chowdhury PAC Primary Care Provider + Jostin Stein MD Primary Care Provider [phone] Andrew Hearn MD Primary Care Provider [phone] Reason for Visit * Reason Comments Medication Refill Encounter Details Date Type Department Care Team (Late st Contact Info) Description 07/04/2020 Refill [facility] [address] [place] [address] Leila Cade MD [address] [place] [address] Medication Refill Social History Tobacco Use Types [...] Miscellaneous Notes * Telephone Encounter - Missy Ivy RN - 07/04/2020 3:54 PM CST Medication failed the protocol, provider to review and approve the medication order if appropriate. Requested Prescriptions Pending Prescriptions Disp Refills traMADol (ULTRAM) 50 MG Tablet [Pharmacy Med Name: TRAMADOL HCL 50 MG TABLET] 120 Tab 0 Sig: TAKE 1 TAB BY MOUTH EVERY 6 HOURS NEEDED FOR MODERATE OR MORE SEVERE PAIN Not Delegated - Analgesics: Opioid Agonists Failed - 07/04/2020 12:13 PM Failed - This refill cannot be delegated Passed - Valid encounter within last 6 months Past Office Visits Recent Outpatient Visits 3 months ago Sinusitis, unspecified chronicity, unspecified location [facility] - Lucinda Luke PAC 8 months ago Essential hypertension [facility] Family [facility] - Leila Anderson MD 9 months ago Sinusitis, unspecified chronicity, unspecified location [facility] - Lucinda Luke PAC 9 months ago Acute pharyngitis, unspecified etiology [facility] - Lucinda Luke PAC 11 months ago Acute pain of left shoulder [facility] - Leila Anderson MD Upcoming Appointments SPARMAKER - Recent and Past Visits Recent Visits Date Type Provider Dept 03/09/20 Telemedicine Lucinda Chowdhury PAC [facility] 11/03/19 Telemedicine Leila Cade MD [facility] 10/02/19 Telemedicine Lucinda Chowdhury PAC [facility] 09/21/19 Office Visit Lucinda Chowdhury PAC [facility] 08/04/19 Office Visit Leila Cade MD [facility] 04/28/19 Office Visit Leila Cade MD [facility] Showing recent visits within past 460 days with a meds authorizing provider and meeting all other requirements Future Appointments No visits were found meeting these conditions. Showing future appointments within next 90 days with a meds authorizing provider and meeting all other requirements Acetaminophen-Codeine 300-60 MG Tablet [Pharmacy Med Name: ACETAMINOPHEN-COD #4 TABLET] 120 Tab 0 Sig: TAKE 1 TAB BY MOUTH 4 TIMES DAILY NEEDED (PAIN) Not Delegated - Analgesics: Opioid Agonist Combinations Failed - 07/04/2020 12:13 PM Failed - This refill cannot be delegated Passed - Valid encounter within last 6 months Past Office Visits Recent Outpatient Visits 3 months ago Sinusitis, unspecified chronicity, unspecified location [facility] Lucinda Luke PAC 8 months ago Essential hypertension [facility] Leila Anderson MD 9 months ago Sinusitis, unspecified chronicity, unspecified location [facility] Lucinda Luke PAC 9 months ago Acute pharyngitis, unspecified etiology [facility] Lucinda Luke PAC 11 months ago Acute pain of left shoulder [facility] Leila Anderson MD Upcoming Appointments SPARMAKER - Recent and Past Visits Recent Visits Date Type Provider Dept 03/09/20 Telemedicine Lucinda Chowdhury PAC [facility] 11/03/19 Telemedicine Leila Cade MD [facility] 10/02/19 Telemedicine Lucinda Chowdhury PAC [facility] 09/21/19 Office Visit Lucinda Chowdhury PAC [facility] 08/04/19 Office Visit Leila Cade MD [facility] 04/28/19 Office Visit [facility]ila Cade MD [facility] [place] Showing recent visits within past 460 days with a meds authorizing provider and meeting all other requirements Future Appointments No visits were found meeting these conditions. Showing future appointments within next 90 days with a meds authorizing provider and meeting all other requirements H CORRECTIONS OFFICER * Telephone Encounter - Debo Pacheco - 07/04/2020 12:13 PM CST Pt called and will be out of meds in two days H CORRECTIONS OFFICER documented in this encounter Plan of Treatment Upcoming Encounters Date Type Department Care Team (Late st Contact Info) Description 11/12/2024 1:45 PM CDT Office Visit [facility] Family [facility] #[address] [place] [address] Andrew Hearn MD [address] [address] documented as of this encounter Visit Diagnoses [...] Total Score: 0 08/04/19 20 1:54 PM YOUTH CORRECTIONS OFFICER documented as of this encounter Care Teams It Desktop Support Technician Relationship Specialty Start Date End Date Leila Cade MD #2 [place] [address] PCP - General Family Medicine 05/25/15 07/08/23 Lucinda Chowdhury PAC [address] [place] [address] PCP - General Physician Commissioned Fire Officer 07/09/23 01/02/24 Lucinda Chowdhury PAC [address] [place] [address] PCP - General Physician Commissioned Fire Officer 01/20/24 02/26/24 Jostin Stein MD #[address] [address] PCP - General Family Medicine 03/04/24 03/04/24 Andrew Hearn MD #[address] [address] PCP - General Family Medicine 03/16/24 documented as of this encounter
--- OUTSIDE RECORDS SUMMARY | 2024-11-07 13:31 | XMS_ITS | Encounter Summary ---
Demographics Address [address] [place] [address] Home Phone Mobile Phone Email Address [employer] Preferred Language Wolof Marital Status Mandaeism Affiliation Unknown Race Black or Christine rican Ethnic Group Not or Lati no Author Organization [facility] Address [address] [place] [address] Phone Care Team Providers Care Supreme Court Justice Name Role Phone Leila Cade MD Primary Care Provider [phone] Lucinda Chowdhury [facility] Primary Care Provider + Lucinda Chowdhury PAC Primary Care Provider + Jostin Stein MD Primary Care Provider [phone] Andrew Hearn MD Primary Care Provider [phone] Reason for Visit * Reason Comments Medication Refill Encounter Details Date Type Department Care Team (Late st Contact Info) Description 10/08/2022 Refill [facility] - Family Medicine [facility] [address]2 [place] [address] Leila Cade MD #2 [place] [address] Medication Refill Social History Tobacco Use Types [...] Encounter - Laureen Canasrussel Camacho RN - 10/08/2022 2:29 PM CDT PDMP 09/06/22 Medication failed the protocol, provider to review and approve the medication order if appropriate. Requested Prescriptions Pending Prescriptions Disp Refills traMADol (ULTRAM) 50 MG Tablet [Pharmacy Med Name: TRAMADOL HCL 50 MG TABLET] 120 Tablet 0 Sig: TAKE 1 TABLET BY MOUTH EVERY 6 HOURS NEEDED FOR MODERATE OR SEVERE PAIN Not Delegated - Opioid Agonists Protocol Failed - 10/08/2022 11:52 AM Failed - This refill cannot be [...] 90 days and meeting all other requirements acetaminophen-codeine (TYLENOL #4) 300-60 MG Tablet [Pharmacy Med Name: ACETAMINOPHEN-COD #4 TABLET] 120 Tablet 0 Sig: TAKE 1 TABLET BY MOUTH 4 TIMES A DAY NEEDED FOR ARTHRITIS PAIN. Not Delegated - Opioid Combinations Protocol Failed - 10/08/2022 11:52 AM Failed - This refill cannot be [...] 90 days and meeting all other requirements fluticasone (FLONASE) 50 MCG/ACT Suspension [Pharmacy Med Name: FLUTICASONE PROP 50 MCG SPRAY] 48 mL 1 Sig: USE 1-2 SPRAYS IN EACH NOSTRIL DAILY DIRECTED. Nasal Steroids Protocol Passed - 10/08/2022 11:52 AM Passed - Visit with relevant provider in past 12 months or upcoming 90 days Recent Visits Date Type Provider Dept 05/03/22 Office Visit Leila Cade MD [facility] 01/31/22 Office Visit Leila Cade MD [facility] Showing recent visits within past 365 days and meeting all other requirements Future Appointments Date Type Provider Dept 11/08/22 Appointment Leila Cade MD [facility] Showing future appointments within next 90 days and meeting all other requirements documented in this encounter Plan of Treatment Upcoming Encounters Date Type Department Care Team (Late st Contact Info) Description 11/12/2024 1:45 PM CDT Office Visit [facility] - Family Medicine [facility] [address] [place] [address] Andrew Hearn MD [address] [address] documented as of this encounter Visit Diagnoses [...] documented as of this encounter Care Teams Supreme Court Justice Relationship Specialty Start Date End Date Leila Cade MD #2 [place] [address] PCP - General Family Medicine 05/25/15 07/08/23 Lucinda Chowdhury, PAC [address] [place] [address] PCP - General Physician Computing Systems Mechanic 07/09/23 01/02/24 Lucinda Chowdhury, PAC [address] [place] [address] PCP - General Physician Computing Systems Mechanic 01/20/24 02/26/24 Jostin Stein MD #[address] [address] PCP - General Family Medicine 03/04/24 03/04/24 Andrew Hearn MD #[address] [address] PCP - General Family Medicine 03/16/24 documented as of this encounter
--- OUTSIDE RECORDS SUMMARY | 2024-11-07 13:31 | XMS_ITS | Encounter Summary ---
Author Organization [facility] Address [address] [place] [address] Phone Care Team Providers Care Riddler Operator Name Role Phone Leila Cade MD Primary Care Provider [phone] Lucinda Chowdhury [facility] Primary Care Provider + Lucinad Chowdhury PAC Primary Care Provider + Jostin Stein MD Primary Care Provider [phone] Andrew Hearn MD Primary Care Provider Reason for Visit * Reason Comments Medication Refill Encounter Details Date Type Department Care Team (Late st Contact Info) Description 08/30/2022 Refill [facility] - Family Medicine [facility] #2 [place] [address] Leila Cade MD #2 [place] [address] Medication Refill Social History Tobacco Use Types [...] Telephone Encounter - Hedy Canas RN - 08/30/2022 1:08 PM CST Medication failed the protocol, provider to review and approve the medication order if appropriate. Requested Prescriptions Pending Prescriptions Disp Refills Xenical 120 MG Capsule [Pharmacy Med Name: XENICAL 120 MG CAPSULE] 90 Capsule 1 Sig: TAKE 1 CAPSULE BY MOUTH 3 TIMES A DAY WITH MEALS. Not Delegated - Anti-Obesity Agents Protocol Failed - 08/30/2022 12:05 AM Failed - This refill cannot be [...] 90 days and meeting all other requirements RANCE CLAIMS ANALYST documented in this encounter Plan of Treatment Upcoming Encounters Date Type Department Care Team (Late st Contact Info) Description 11/12/2024 1:45 PM CDT Office Visit [facility] - Family Medicine - [place] [address] [place] [address] Andrew Hearn MD #[address] [address] documented as of this encounter Visit Diagnoses [...] documented as of this encounter Care Teams Riddler Operator Relationship Specialty Start Date End Date Leila Cade MD #2 [place] [address] PCP - General Family Medicine 05/25/15 07/08/23 Lucinda Chowdhury, PAC [address] [place] [address] PCP - General Physician Stippler 07/09/23 01/02/24 Lucinda Chowdhury, [facility] [address] [facility] [place] [address] PCP - General Physician Stippler 01/20/24 02/26/24 Jostin Stein MD #[address] [address] PCP - General Family Medicine 03/04/24 03/04/24 Andrew Hearn MD #[address] [place] [address] PCP - General Family Medicine 03/16/24 documented as of this encounter
--- OUTSIDE RECORDS SUMMARY | 2024-11-07 13:31 | XMS_ITS | Encounter Summary ---
Author Organization [facility] Address [address] [place] [address] Phone Care Team Providers Care Production Zone Leader Name Role Phone Leila Cade MD Primary Care Provider [phone] Lucinda Chowdhury [facility] Primary Care Provider + Lucinda Chowdhury PAC Primary Care Provider + Jostin Stein MD Primary Care Provider [phone] Andrew Hearn MD Primary Care Provider Reason for Visit * Reason Comments Medication Refill Encounter Details Date Type Department Care Team (Late st Contact Info) Description 12/19/2022 Refill [facility] - Family Medicine [facility] [address] [place] [address] Leila Cade MD [address]2 [place] [address] Medication Refill Social History Tobacco Use Types [...] Telephone Encounter - Hedy Canas RN - 12/20/2022 9:40 AM CDT PDMP T#3 11/20/22 Medication failed the protocol, provider to review and approve the medication order if appropriate. Requested Prescriptions Pending Prescriptions Disp Refills atorvastatin (LIPITOR) 10 MG Tablet [Pharmacy Med Name: ATORVASTATIN 10 MG TABLET] 90 Tablet 1 Sig: TAKE 1 TABLET BY MOUTH EVERY DAY Hmg CoA Reductase Inhibitors Protocol Passed - 12/19/2022 4:17 PM Passed - Visit with relevant provider [...] Range Status 11/01/2022 98.9 <130 mg/dL Final Acetaminophen-Codeine 300-60 MG Tablet [Pharmacy Med Name: ACETAMINOPHEN-COD #4 TABLET] 120 Tablet 0 Sig: TAKE 1 TABLET BY MOUTH 4 TIMES A DAY NEEDED FOR ARTHRITIS PAIN Not Delegated - Opioid Combinations Protocol Failed - 12/19/2022 4:17 PM Failed - This refill cannot be [...] 90 days and meeting all other requirements lubiprostone (AMITIZA) 8 MCG Capsule [Pharmacy Med Name: LUBIPROSTONE 8 MCG CAPSULE] 60 Capsule 0 Sig: TAKE 1 CAPSULE BY MOUTH 2 TIMES DAILY (WITH MEALS) FOR 30 DAYS. IBS-C/CIC Protocol Failed - 12/19/2022 4:17 PM Failed - Active on medication list [...] Description 11/12/2024 1:45 PM CDT Office Visit [facility] - Family Medicine - [place] [address] [place] [address] Andrew Hearn MD [address] [address] documented as of this encounter Visit Diagnoses [...] documented as of this encounter Care Teams Production Zone Leader Relationship Specialty Start Date End Date Leila Cade MD [address]2 [place] [address] PCP - General Family Medicine 05/25/15 07/08/23 Lucinda Chowdhury, PAC [address] [place] [address] PCP - General Physician Sleeve Setter 07/09/23 01/02/24 Lucinda Chowdhury, PAC [address] [place] [address] PCP - General Physician Sleeve Setter 01/20/24 02/26/24 Jostin Stein MD #[address] [address] PCP - General Family Medicine 03/04/24 03/04/24 Andrew Hearn MD #[address] [address] PCP - General Family Medicine 03/16/24 documented as of this encounter
--- OUTSIDE RECORDS SUMMARY | 2024-11-07 13:31 | XMS_ITS | Encounter Summary ---
Author Organization [facility] Address [address] [place] [address] Phone Care Team Providers Care Code Official Name Role Phone Leila Cade MD Primary Care Provider [phone] Lucinda Chowdhury [facility] Primary Care Provider + Lucinda Chowdhury PAC Primary Care Provider + Jostin Stein MD Primary Care Provider [phone] Andrew Hearn MD Primary Care Provider Reason for Visit * Reason Comments Medication Refill Encounter Details Date Type Department Care Team (Late st Contact Info) Description 09/05/2022 Refill [facility] - Family Medicine [facility] [address] [place] [address] Leila Cade MD [address]2 [place] [address] Medication Refill Social History Tobacco Use Types [...] Encounter - Laureen Canasrussel Camacho RN - 09/06/2022 10:46 AM CST PDMP 08/06/22 Medication failed the protocol, provider to review and approve the medication order if appropriate. Requested Prescriptions Pending Prescriptions Disp Refills traMADol (ULTRAM) 50 MG Tablet [Pharmacy Med Name: TRAMADOL HCL 50 MG TABLET] 120 Tablet 0 Sig: TAKE 1 TABLET BY MOUTH EVERY 6 HOURS NEEDED FOR MODERATE OR SEVERE PAIN Not Delegated - Opioid Agonists Protocol Failed - 09/05/2022 1:59 PM Failed - This refill cannot be [...] Delegated - Opioid Combinations Protocol Failed - 09/05/2022 1:59 PM Failed - This refill cannot be [...] 90 days and meeting all other requirements MOBILE ACCESSORIES SALESPERSON documented in this encounter Plan of Treatment Upcoming Encounters Date Type Department Care Team (Late st Contact Info) Description 11/12/2024 1:45 PM CDT Office Visit [facility] - Family [facility] [address] [place] [address] Andrew Hearn MD [address] [address] documented as of this encounter Visit Diagnoses [...] documented as of this encounter Care Teams Code Official Relationship Specialty Start Date End Date Leila Cade MD [address] [place] [address] PCP - General Family Medicine 05/25/15 07/08/23 Lucinda Chowdhury, PAC [address] [place] [address] PCP - General Physician Knotter 07/09/23 01/02/24 Lucinda Chowdhury, PAC [address] [place] [address] PCP - General Physician Knotter 01/20/24 02/26/24 Jostin Stein MD #[address] [address] PCP - General Family Medicine 03/04/24 03/04/24 Andrew Hearn MD #[address] [address] PCP - General Family Medicine 03/16/24 documented as of this encounter
--- OUTSIDE RECORDS SUMMARY | 2024-11-07 13:31 | XMS_ITS | Encounter Summary ---
Author Organization [facility] Address [address] [place] [address] Phone Care Team Providers Care Cook Fry Name Role Phone Leila Cade MD Primary Care Provider [phone] Lucinda Chowdhury [facility] Primary Care Provider + Lucinda Chowdhury PAC Primary Care Provider + Jostin Stein MD Primary Care Provider [phone] Andrew Hearn MD Primary Care Provider Reason for Visit * Reason Comments Medication Refill Encounter Details Date Type Department Care Team (Late st Contact Info) Description 05/12/2023 Refill [facility] - Family Medicine [facility] [address] [place] [address] Leila Cade MD [address]2 [place] [address] Medication Refill Social History Tobacco Use Types [...] Telephone Encounter - Hedy Canas RN - 05/13/2023 11:58 AM CST Each fill is 10 days Medication failed the protocol, provider to review and approve the medication order if appropriate. Requested Prescriptions Pending Prescriptions Disp Refills cyclobenzaprine (FLEXERIL) 10 MG Tablet [Pharmacy Med Name: CYCLOBENZAPRINE 10 MG TABLET] 30 Tablet4 Sig: TAKE 1 TABLET BY MOUTH THREE TIMES A DAY NEEDED FOR MUSCLE SPASM Not Delegated - Muscle Relaxants Protocol Failed - 05/12/2023 5:53 PM Failed - This refill cannot be delegated Passed - Visit with relevant provider in past 12 months or upcoming 90 days Recent Visits Date Type Provider Dept 03/21/23 Office Visit Lucinda Chowdhury, [facility] [place] 02/07/23 Office Visit Leila Cade MD [facility] 12/25/22 Office Visit Lucinda Chowdhury, [facility] [place] 11/08/22 Office Visit Leila Cade MD [facility] [place] Showing recent visits within past 365 days and meeting all other requirements Future Appointments Date Type Provider Dept 06/13/23 Appointment Leila Cade MD [facility] [place] Showing future appointments within next 90 days and meeting all other requirements INE DISPATCHER documented in this encounter Plan of Treatment Upcoming Encounters Date Type Department Care Team (Late st Contact Info) Description 11/12/2024 1:45 PM CDT Office Visit [facility] Medical Group - Family Medicine - [place] [address] [place] [address] Andrew Hearn MD [address] [address] documented as of this encounter Visit Diagnoses [...] documented as of this encounter Care Teams Cook Fry Relationship Specialty Start Date End Date Leila Cade MD [address] [place] [address] PCP - General Family Medicine 05/25/15 07/08/23 Lucinda Chowdhury, [facility] [address] [place] [address] PCP - General Physician Machine Greaser 07/09/23 01/02/24 Lucinda Chowdhury, PAC [address] [place] [address] PCP - General Physician Machine Greaser 01/20/24 02/26/24 Jostin Stein MD #2 [facility] [address] [place] [address] PCP - General Family Medicine 03/04/24 03/04/24 Andrew Hearn MD #[address] [address] PCP - General Family Medicine 03/16/24 documented as of this encounter
--- OUTSIDE RECORDS SUMMARY | 2024-11-07 13:31 | XMS_ITS | Encounter Summary ---
Author Organization [facility] Address [address] [place] [address] Phone Care Team Providers Care Magnetic Observer Name Role Phone Leila Cade MD Primary Care Provider Lucinda Chowdhury PAC Primary Care Provider + Lucinda Chowdhury PAC Primary Care Provider + Jostin Stein MD Primary Care Provider [phone] Andrew Hearn MD Primary Care Provider [phone] Reason for Visit * Reason Comments Medication Refill Encounter Details Date Type Department Care Team (Late st Contact Info) Description 01/28/2021 Refill [facility] - Family Medicine [facility] #2 [place] [address] Lucinda Chowdhury PAC [address] [place] [address] Medication Refill Social History Tobacco Use Types [...] have Coronavirus / COVID-19? No / Unsure 01/24/2021 10:39 AM CDT documented as of this encounter Miscellaneous Notes * Telephone Encounter - Hedy Canas RN - 01/30/2021 10:35 AM CDT The original prescription was discontinued on 11/03/2019 by Leila Cade MD for the followingreason: Therapy completed Patient has fluticasone nasal spray ordered documented in this encounter Plan of Treatment Upcoming Encounters Date Type Department Care Team (Late st Contact Info) Description 11/12/2024 1:45 PM CDT Office Visit [facility] - Family Medicine [facility] [address] [place] [address] Andrew Hearn MD #[address] [address] documented as of this encounter Visit Diagnoses [...] documented as of this encounter Care Teams Magnetic Observer Relationship Specialty Start Date End Date Leila Cade MD [address] [place] [address] PCP - General Family Medicine 05/25/15 07/08/23 Lucinda Chowdhury, PAC [address] [place] [address] PCP - General Physician Patient Service Coordinator 07/09/23 01/02/24 Lucinda Chowdhury, [facility] [address] [place] [address] PCP - General Physician Patient Service Coordinator 01/20/24 02/26/24 Jostin Stein MD [address] [address] PCP - General Family Medicine 03/04/24 03/04/24 Andrew Hearn MD #[address] [address] PCP - General Family Medicine 03/16/24 documented as of this encounter
--- OUTSIDE RECORDS SUMMARY | 2024-11-07 13:31 | XMS_ITS | Encounter Summary ---
Author Organization [facility] Address [address] [place] [address] Phone Care Team Providers Care Rehab Trainer Name Role Phone Leila Cade MD Primary Care Provider [phone] Lucinda Chowdhury [facility] Primary Care Provider + Lucinda Chowdhury PAC Primary Care Provider + Jostin Stein MD Primary Care Provider [phone] Andrew Haern MD Primary Care Provider Reason for Visit * Reason Comments Medication Refill Encounter Details Date Type Department Care Team (Late st Contact Info) Description 12/14/2020 Refill [facility] - Family Medicine [facility] #2 [place] [address] Leila Cade MD [address] [place] [address] Medication Refill Social History Tobacco Use Types [...] Telephone Encounter - Hedy Canas RN - 12/15/2020 11:37 AM CDT [place] PD[place] T#4 & Tramadol 11/14/20 Medication failed the protocol, provider to review and approve the medication order if appropriate. Requested Prescriptions Pending Prescriptions Disp Refills meclizine (ANTIVERT) 25 MG Tablet [Pharmacy Med Name: MECLIZINE 25 MG TABLET] 50 Tablet 0 Sig: TAKE 1 TABLET BY MOUTH 3 TIMES DAILY NEEDED FOR DIZZINESS [facility] Gastroenterology: Antiemetics Passed - 12/15/2020 11:37 AM Passed - Valid encounter within last 12 months Past Office Visits Recent Outpatient Visits 4 months ago Urinary hesitancy [facility] Family [facility] - Leila Anderson MD 9 months ago Sinusitis, unspecified chronicity, unspecified location [facility] Family [facility] - Lucinda Luke PAC 1 year ago Essential hypertension [facility] Family [facility] - Leila Anderson MD 1 year ago Sinusitis, unspecified chronicity, unspecified location [facility] - Lucinda Luke PAC 1 year ago Acute pharyngitis, unspecified etiology [facility] - Lucinda Luke PAC Upcoming Appointments TANK FARM ATTENDANT - Recent and Past Visits Recent Visits Date Type Provider Dept 08/11/20 Office Visit Leila Cade MD [facility] 03/09/20 Telemedicine uLcinda Chowdhury PAC [facility] 11/03/19 Telemedicine Leila Cade MD [facility] 10/02/19 Telemedicine Lucinda Chowdhury PAC [facility] 09/21/19 Office Visit Lucinda Chowdhury PAC [facility] Showing recent visits within past 460 [...] MOUTH 4 TIMES DAILY NEEDED FOR PAIN. [facility] Not Delegated - Analgesics: Opioid Agonist Combinations Failed - 12/15/2020 11:37 AM Failed - This refill cannot be delegated Passed - Valid encounter within last 6 months Past Office Visits Recent Outpatient Visits 4 months ago Urinary hesitancy [facility] Leila Anderson MD 9 months ago Sinusitis, unspecified chronicity, unspecified location [facility] Lucinda Luke PAC 1 year ago Essential hypertension [facility] Leila Anderson MD 1 year ago Sinusitis, unspecified chronicity, unspecified location [facility] Lucinda Luke PAC 1 year ago Acute pharyngitis, unspecified etiology [facility] Lucinda Luke PAC Upcoming Appointments TANK FARM ATTENDANT - Recent and Past Visits Recent Visits Date Type Provider Dept 08/11/20 Office [facility] [place] 03/09/20 Telemedicine Lucinda Chowdhury PAC [facility] 11/03/19 Telemedicine Leila Cade MD [facility] 10/02/19 Telemedicine Lucinda Chowdhury PAC [facility] [place] 09/21/19 Office Visit [facility] [place] Showing recent visits within past 460 days with a meds authorizing provider and meeting all other requirements Future Appointments No visits were found meeting these conditions. Showing future appointments within next 90 days with a meds authorizing provider and meeting all other requirements traMADol (ULTRAM) 50 MG Tablet [Pharmacy Med Name: TRAMADOL HCL 50 MG TABLET] 120 Tablet 0 Sig: TAKE 1 TAB BY MOUTH EVERY 6 HOURS NEEDED FOR MODERATE OR MORE SEVERE PAIN. [facility] Not Delegated - Analgesics: Opioid Agonists Failed - 12/15/2020 11:37 AM Failed - This refill cannot be delegated Passed - Valid encounter within last 6 months Past Office Visits Recent Outpatient Visits 4 months ago Urinary hesitancy [facility] - Leila Anderson MD 9 months ago Sinusitis, unspecified chronicity, unspecified location [facility] - Lucinda Luke PAC 1 year ago Essential hypertension [facility] Leila Anderson MD 1 year ago Sinusitis, unspecified chronicity, unspecified location [facility] - Lucinda Luke PAC 1 year ago Acute pharyngitis, unspecified etiology [facility] Lucinda Luke PAC Upcoming Appointments TANK FARM ATTENDANT - Recent and Past Visits Recent Visits Date Type Provider Dept 08/11/20 Office Visit [facility] [place] 03/09/20 Telemedicine Lucinda Chowdhury PAC [facility] 11/03/19 Telemedicine Leila Cade MD [facility] 10/02/19 Telemedicine Lucinda Chowdhury PAC [facility] 09/21/19 Office Visit Lucinda Chowdhury, PAC [facility] Showing recent visits within past 460 days with a meds authorizing provider and meeting all other requirements Future Appointments No visits were found meeting these conditions. Showing future appointments within next 90 days with a meds authorizing provider and meeting all other requirements candesartan (ATACAND) 8 MG Tablet [Pharmacy Med Name: CANDESARTAN CILEXETIL 8 MG TAB] 90 Tablet 3 Sig: TAKE 1 TABLET BY MOUTH EVERY DAY ARB Protocol Failed - 12/15/2020 11:37 AM Failed - Serum potassium on record in past 12 months No results found for: POTASSIUM, POCTK Failed - GFR on record in past 12 months GFR, EST. Date Value Ref Range Status 11/27/2018 >60 >=60 Final Comment: Creatinine Clearance is the preferred criteria for selecting drug dose adjustments in renally impaired patients. The GFR is provided as additional pertinent clinical information. GFR is reported in mL/min/1.73 sq m. GFR, EST. NONAFRICAN Date Value Ref Range Status 11/27/2018 58 (L) >=60 Final Passed - BP on record in the past year Clinician-entered: BP Readings from Last 3 Encounters: 08/11/20 128/88 02/13/20 120/80 09/21/19 110/70 Patient-entered: No data recorded Passed - Visit with relevant provider in past year or upcoming 90 days Recent Visits Date Type Provider Dept 08/11/20 Office Visit Leila Cade MD [facility] 03/09/20 Telemedicine Lucinda Chowdhury PAC [facility] Showing recent visits within past 365 days and meeting all other requirements Future Appointments No visits were found meeting these conditions. Showing future appointments within next 90 days and meeting all other requirements documented in this encounter Plan of Treatment Upcoming Encounters Date Type Department Care Team (Late st Contact Info) Description 11/12/2024 1:45 PM CDT Office Visit [facility] - Family Medicine [facility] [address] [place] [address] Andrew Hearn MD [address] [address] documented as of this encounter Visit Diagnoses [...] Total Score: 0 08/04/19 20 1:54 PM WIRER MAINTENANCE documented as of this encounter Care Teams Rehab Trainer Relationship Specialty Start Date End Date Leila Cade MD [address] [place] [address] PCP - General Family Medicine 05/25/15 07/08/23 Lucinda Chowdhury, [facility] [address] [place] [address] PCP - General Physician Medical Reception 07/09/23 01/02/24 Lucinda Chowdhury, [facility] [address] [place] [address] PCP - General Physician Medical Reception 01/20/24 02/26/24 Jostin Stein MD [address] [address] PCP - General Family Medicine 03/04/24 03/04/24 Andrew Hearn MD [address] [place] [address] PCP - General Family Medicine 03/16/24 documented as of this encounter
--- OUTSIDE RECORDS SUMMARY | 2024-11-07 13:31 | XMS_ITS | Encounter Summary ---
Author Organization [facility] Address [address] [place] [address] Phone Care Team Providers Care Ship Engines Operating Engineer Name Role Phone Leila Cade MD Primary Care Provider Lucinda Chowdhury PAC Primary Care Provider + Lucinda Chowdhury PAC Primary Care Provider + Jostin Stein MD Primary Care Provider [phone] Andrew Hearn MD Primary Care Provider Reason for Visit * Reason Comments Medication Refill Encounter Details Date Type Department Care Team (Late st Contact Info) Description 09/04/2021 Refill [facility] - Family Medicine [facility] #2 [place] [address] Lucinda Chowdhury PAC [address] [place] [address] Medication Refill Social History Tobacco Use Types [...] have Coronavirus / COVID-19? No / Unsure 08/28/2021 2:06 PM APPLIED PSYCHOLOGY PROFESSOR documented as of this encounter Miscellaneous Notes * Telephone Encounter - Hedy Canas RN - 09/05/2021 2:46 PM CST Name from pharmacy: AZELASTINE 0.1% (137 MCG) SPRY Will file in chart as: azelastine (ASTELIN) 0.1 % Solution The original prescription was discontinued on 11/03/2019 by Leila Cade MD IED PSYCHOLOGY PROFESSOR documented in this encounter Plan of Treatment Upcoming Encounters Date Type Department Care Team (Late st Contact Info) Description 11/12/2024 1:45 PM CDT [facility] Visit [facility] - [place] [address]2 [facility] [place] [address] Andrew Hearn MD #[address] [address] documented as of this encounter Visit Diagnoses [...] documented as of this encounter Care Teams Ship Engines Operating Engineer Relationship Specialty Start Date End Date Leila Cade MD #2 [place] [address] PCP - General Family Medicine 05/25/15 07/08/23 Lucinda Chowdhury, PAC [address] [place] [address] PCP - General Physician Lead Sharepoint Developer 07/09/23 01/02/24 Lucinda Chowdhury, [facility] [address] [place] [address] PCP - General Physician Lead Sharepoint Developer 01/20/24 02/26/24 Jostin Stein MD #[address] [address] PCP - General Family Medicine 03/04/24 03/04/24 Andrew Hearn MD #[address] [address] PCP - General Family Medicine 03/16/24 documented as of this encounter
--- OUTSIDE RECORDS SUMMARY | 2024-11-07 13:31 | XMS_ITS | Encounter Summary ---
Author Organization [facility] Address [address] [place] [address] Phone Care Team Providers Care Clinic Supervisor Name Role Phone Andrew Hearn MD Primary Care Provider [phone] Reason for Visit * Reason Comments Medication Refill Encounter Details Date Type Department Care Team (Late st Contact Info) Description 03/11/2024 Refill [facility] #2 [place] [id number] Jostin Stein MD [address] [address] Medication Refill Social History Tobacco Use Types [...] Telephone Encounter - Hedy Canas RN - 03/12/2024 7:26 AM CDT Images from the original note were not included. March 10, 2024 Me to Andrew Hearn MD DS 03/10/24 5:[address] Hearn - has JACINTO with you 03/16/24 Agnieszka Fish APRN, BRAID FOLDER to [facility] 03/10/24 5:02 PM She just had a refill and has a hx of abnormal UDS. Will need to discuss with her new PCP documented in this encounter Plan of Treatment Upcoming Encounters Date Type Department Care Team (Late st Contact Info) Description 11/12/2024 1:45 PM CDT Office Visit [facility] #2 [place] [address] Andrew Hearn MD #[address] [address] documented as of this encounter Visit Diagnoses Diagnosis Osteoarthritis of knees, bilateral documented in this encounter Additional Health Concerns Infection Onset Date Last Indicated Resolved Time Respiratory Rule-Out 09/27/2024 09/27/2024 025 3:40 PM CDT COVID - 19 09/27/2024 09/27/2024 09/27/2024 3:39 PM CDT Assessment Noted Time PHQ-9 Depression Total Score: 0 01/25/20 21 11:00 AM CDT documented as of this encounter Care Teams Clinic Supervisor Relationship Specialty Start Date End Date Andrew Hearn MD [address] [address] PCP - General Family Medicine 03/16/24 documented as of this encounter
--- OUTSIDE RECORDS SUMMARY | 2024-11-07 13:31 | XMS_ITS | Encounter Summary ---
Author Organization [facility] Address [address] [place] [address] Phone Care Team Providers Care It Support Specialist Name Role Phone Lucinda Chowdhury Primary Care Provider + Lucinda Chowdhury Primary Care Provider + Jostin Stein MD Primary Care Provider [phone] Andrew Hearn MD Primary Care Provider [phone] Reason for Visit * Reason Comments Medication Refill Encounter Details Date Type Department Care Team (Late st Contact Info) Description 12/01/2023 Refill [facility] #2 [place] [phone] Leila Cade MD #2 [place] [address] Medication Refill Social History Tobacco Use Types [...] Telephone Encounter - Missy Rivera RN - 12/01/2023 3:41 PM CDT Medication failed the protocol, provider to review and approve the medication order if appropriate. Requested Prescriptions Pending Prescriptions Disp Refills cyclobenzaprine (FLEXERIL) 10 MG Tablet [Pharmacy Med Name: CYCLOBENZAPRINE 10 MG TABLET] 30 Tablet3 Sig: TAKE 1 TABLET BY MOUTH THREE TIMES A DAY NEEDED FOR MUSCLE SPASM Not Delegated - Muscle Relaxants Protocol Failed - 12/01/2023 2:03 PM Failed - This refill cannot be delegated Passed - Visit with relevant provider in past 12 months or upcoming 90 days Recent Visits Date Type Provider Dept 07/12/23 Office Visit Agnieszka Fish APRN, CNP [facility] 03/21/23 Office Visit Lucinda Chowdhury PAC [facility] 02/07/23 Office Visit Leila Cade MD [facility] 12/25/22 Office Visit Lucinda Chowdhury PAC [facility] Showing recent visits within past 365 days and meeting all other requirements Future Appointments No visits were found meeting these conditions. Showing future appointments within next 90 days and meeting all other requirements Refused Prescriptions Disp Refills Vitamin D3 2000 UNIT Capsule [Pharmacy Med Name: VITAMIN D3 2,000 UNIT SOFTGEL] 90 Capsule 1 Sig: TAKE 1 CAPSULE BY MOUTH EVERY DAY Vitamin Supplements (Adult) Protocol Passed - 12/01/2023 2:03 PM Passed - Visit with relevant provider in past 12 months or upcoming 90 days Recent Visits Date Type Provider Dept 07/12/23 Office Visit Agnieszka Fish APRN, CNP [facility] 03/21/23 Office Visit Lucinda Chowdhury PAC [facility] 02/07/23 Office Visit Leila Cade MD [facility] 12/25/22 Office Visit Lucinda Chowdhury PAC [facility] Showing recent visits within past 365 days and meeting all other requirements Future Appointments No visits were found meeting these conditions. Showing future appointments within next 90 days and meeting all other requirements Passed - Vitamin D dose not greater than 1.25mg * Telephone Encounter - Missy Rivera RN - 12/01/2023 3:41 PM CDT Images from the original note were not included. Cholecalciferol Dispensed Days Supply Quantity Provider Pharmacy VITAMIN D3 2,000 UNIT SOFTGEL 09/22/2023 90 90 Each Leila Cade MD [id number]... Requested too soon. documented in this encounter Plan of Treatment Upcoming Encounters Date Type Department Care Team (Late st Contact Info) Description 11/12/2024 1:45 PM CDT Office Visit [facility] [place] [address] [place] [address] Andrew Hearn MD #[address] [address] documented as of this encounter Visit Diagnoses [...] as of this encounter Care Teams It Support Specialist Relationship Specialty Start Date End Date Lucinda Chowdhury, ELDER [address] [place] [address] PCP - General Physician Profile Shaper Operator 07/09/23 01/02/24 Lucinda Chowdhury PAC [address] [facility] [place] [address] PCP - General Physician Profile Shaper Operator 01/20/24 02/26/24 Jostin Stein MD #[address] [address] PCP - General Family Medicine 03/04/24 03/04/24 Andrew Hearn MD #[address] [address] PCP - General Family Medicine 03/16/24 documented as of this encounter
--- OUTSIDE RECORDS SUMMARY | 2024-11-07 13:31 | XMS_ITS | Encounter Summary ---
Author Organization [facility] Address [address] [place] [address] Phone Care Team Providers Care Beauty Therapist Name Role Phone Leila Cade MD Primary Care Provider [phone] Lucinda Chowdhury [facility] Primary Care Provider + Lucinda Chowdhury PAC Primary Care Provider + Jostin Stein MD Primary Care Provider [phone] Andrew Hearn MD Primary Care Provider Reason for Visit * Reason Comments Medication Refill Encounter Details Date Type Department Care Team (Late st Contact Info) Description 09/06/2020 Refill [facility] - Family Medicine [facility] #2 [place] [address] Leila Cade MD #2 [place] [address] Medication Refill Social History Tobacco Use Types [...] COVID-19? No / Unsure 08/11/2020 2:16 PM SHIPPING POINT INSPECTOR documented as of this encounter Miscellaneous Notes * Telephone Encounter - Paulette Johnston RN - 09/06/2020 10:48 AM CST Medication failed the protocol, provider to review and approve the medication order if appropriate. Requested Prescriptions Pending Prescriptions Disp Refills Acetaminophen-Codeine 300-60 MG Tablet [Pharmacy Med Name: ACETAMINOPHEN-COD #4 TABLET] 120 Tablet 0 Sig: TAKE 1 TAB BY MOUTH 4 TIMES DAILY NEEDED FOR PAIN. Not Delegated - Analgesics: Opioid Agonist Combinations Failed - 09/06/2020 10:43 AM Failed - This refill cannot be delegated Passed - Valid encounter within last 6 months Past Office Visits Recent Outpatient Visits 3 weeks ago Urinary hesitancy [facility] - Leila Anderson MD 6 months ago Sinusitis, unspecified chronicity, unspecified location [facility] - Lucinda Luke PAC 10 months ago Essential hypertension [facility] - Leila Anderson MD 11 months ago Sinusitis, unspecified chronicity, unspecified location [facility] Lucinda Webb PAC 11 months ago Acute pharyngitis, unspecified etiology [facility] Lucinda Webb PAC Upcoming Appointments LEGAL MANAGER - Recent and Past Visits Recent Visits Date Type Provider Dept 08/11/20 Office Visit Leila Cade MD [facility] 03/09/20 Telemedicine Lucinda Chowdhury PAC [facility] 11/03/19 Telemedicine Leila Cade MD [facility] 10/02/19 Telemedicine Lucinda Chowdhury PAC [facility] 09/21/19 Office Visit Lucinda Chowdhury PAC [facility] 08/04/19 Office Visit Leila Cade MD [facility] [...] Delegated - Analgesics: Opioid Agonists Failed - 09/06/2020 10:43 AM Failed - This refill cannot be delegated Passed - Valid encounter within last 6 months Past Office Visits Recent Outpatient Visits 3 weeks ago Urinary hesitancy [facility] Leila Anderson MD 6 months ago Sinusitis, unspecified chronicity, unspecified location [facility] Lucinda Luke PAC 10 months ago Essential hypertension [facility] Leila Anderson MD 11 months ago Sinusitis, unspecified chronicity, unspecified location [facility] Lucinda Luke PAC 11 months ago Acute pharyngitis, unspecified etiology [facility] Lucinda Luke PAC Upcoming Appointments LEGAL MANAGER - Recent and Past Visits Recent Visits Date Type Provider Dept 08/11/20 Office Visit Leila Cade MD [facility] 03/09/20 Telemedicine Lucinda Chowdhury PAC [facility] 11/03/19 Telemedicine Leila Cade MD [facility] 10/02/19 Telemedicine Lucinda Chowdhury PAC [facility] 09/21/19 Office Visit Lucinda Chowdhury PAC [facility] 08/04/19 Office Visit Leila Cade MD [facility] Showing recent visits within past 460 days with a meds authorizing provider and meeting all other requirements Future Appointments No visits were found meeting these conditions. Showing future appointments within next 90 days with a meds authorizing provider and meeting all other requirements PING POINT INSPECTOR documented in this encounter Plan of Treatment Upcoming Encounters Date Type Department Care Team (Late st Contact Info) Description 11/12/2024 1:45 PM CDT Office Visit [facility] #2 [place] [address] Andrew Hearn MD [address] [address] documented as of this encounter Visit Diagnoses [...] Total Score: 0 08/04/19 20 1:54 PM SHIPPING POINT INSPECTOR documented as of this encounter Care Teams Beauty Therapist Relationship Specialty Start Date End Date Leila Cade MD #2 [place] [address] PCP - General Family Medicine 05/25/15 07/08/23 Lucinda Chowdhury, ELDER [address] [place] [address] PCP - General Physician Seam Rubber 07/09/23 01/02/24 Lucinda Chowdhury PAC [address] [place] [address] PCP - General Physician Seam Rubber 01/20/24 02/26/24 Jostin Stein MD #[address] [address] PCP - General Family Medicine 03/04/24 03/04/24 Andrew Hearn MD #[address] [address] PCP - General Family Medicine 03/16/24 documented as of this encounter
--- OUTSIDE RECORDS SUMMARY | 2024-11-07 13:31 | XMS_ITS | Encounter Summary ---
Author Organization [facility] Address [address] [place] [address] Phone Care Team Providers Care Director Print Name Role Phone Leila Cade MD Primary Care Provider [phone] Lucinda Chowdhury [facility] Primary Care Provider + Lucinda Chowdhury PAC Primary Care Provider + Jostin Stein MD Primary Care Provider [phone] Andrew Hearn MD Primary Care Provider Reason for Visit * Reason Comments Medication Refill Encounter Details Date Type Department Care Team (Late st Contact Info) Description 07/06/2020 [facility] [address] [place] [address] Leila Cade MD #2 [place] [address] Medication Refill Social History Tobacco [...] Office Visit [facility] [address] [place] [address] Andrew Hearn MD [address] [address] documented as of this encounter Visit Diagnoses [...] Total Score: 0 08/04/19 20 1:54 PM RUBBER BELT SPLICER documented as of this encounter Care Teams Director Print Relationship Specialty Start Date End Date Leila Cade MD [address] [place] [address] PCP - General Family Medicine 05/25/15 07/08/23 Lucinda Chowdhury, PAC [address] [place] [address] PCP - General Physician Materials Manager 07/09/23 01/02/24 Lucinda Chowdhury, PAC [address] [place] [address] PCP - General Physician Materials Manager 01/20/24 02/26/24 Jostin Stein MD #[address] [address] PCP - General Family Medicine 03/04/24 03/04/24 Andrew Hearn MD #[address] [address] PCP - General Family Medicine 03/16/24 documented as of this encounter
--- OUTSIDE RECORDS SUMMARY | 2024-11-07 13:31 | XMS_ITS | Encounter Summary ---
Author Organization [facility] Address [address] [place] [address] Phone Care Team Providers Care Gun Perforator Name Role Phone Leila Cade MD Primary Care Provider [phone] Lucinda Chowdhury [facility] Primary Care Provider + Lucinda Chowdhury PAC Primary Care Provider + Jostin Stein MD Primary Care Provider [phone] Andrew Hearn MD Primary Care Provider Reason for Visit * Reason Comments Medication Refill Encounter Details Date Type Department Care Team (Late st Contact Info) Description 04/03/2020 [facility] [address] [place] [address] Leila Cade MD [address]2 [place] [address] Medication Refill Social History Tobacco [...] have Coronavirus / COVID-19? No / Unsure 04/05/2020 1:44 PM CDT documented as of this encounter Miscellaneous Notes * Telephone Encounter - Priscila Lambert RN - 04/04/2020 2:52 PM CDT Refill pended to PCP documented in this encounter Plan of Treatment Upcoming Encounters Date Type Department Care Team (Late st Contact Info) Description 11/12/2024 1:45 [address]T [address] [facility] - Family [facility] #2 [place] [address] Andrew Hearn MD #[address] [address] documented as of this encounter Visit Diagnoses [...] Total Score: 0 08/04/19 20 1:54 PM TANNERY WORKER documented as of this encounter Care Teams Gun Perforator Relationship Specialty Start Date End Date Leila Cade MD #[address] [place] [address] PCP - General Family Medicine 05/25/15 07/08/23 Lucinda Chowdhury, PAC [address] [place] [address] PCP - General Physician Presidential Helicopter Crew Chief 07/09/23 01/02/24 Lucinda Chowdhury, PAC [address] [place] [address] PCP - General Physician Presidential Helicopter Crew Chief 01/20/24 02/26/24 Jostin Stein MD #[address] [address] PCP - General Family Medicine 03/04/24 03/04/24 [facility]n [facility] [address] PCP - General Family Medicine 03/16/24 documented as of this encounter
--- OUTSIDE RECORDS SUMMARY | 2024-11-07 13:31 | XMS_ITS | Encounter Summary ---
Author Organization [facility] Address [address] [place] [address] Phone Care Team Providers Care Section Plotter Operator Name Role Phone Leila Cade MD Primary Care Provider [phone] Lucinda Chowdhury [facility] Primary Care Provider + Lucinda Chowdhury PAC Primary Care Provider + Jostin Stein MD Primary Care Provider [phone] Andrew Hearn MD Primary Care Provider Reason for Visit * Reason Comments Medication Refill Encounter Details Date Type Department Care Team (Late st Contact Info) Description 02/21/2023 Refill [facility] - Family Medicine [facility] #2 [place] [address] Leila Cade MD [address] [place] [address] Medication Refill Social History Tobacco Use Types [...] Telephone Encounter - Hedy Canas RN - 02/22/2023 9:22 AM CDT PDMP T#4 01/21/23 Medication failed the protocol, provider to review and approve the medication order if appropriate. Requested Prescriptions Pending Prescriptions Disp Refills Acetaminophen-Codeine 300-60 MG Tablet [Pharmacy Med Name: ACETAMINOPHEN-COD #4 TABLET] 120 Tablet 0 Sig: TAKE 1 TABLET BY MOUTH 4 TIMES A DAY NEEDED FOR ARTHRITIS PAIN Not Delegated - Opioid Combinations Protocol Failed - 02/21/2023 2:12 PM Failed - This refill cannot be delegated Passed - Visit with relevant provider in past 12 months or upcoming 90 days Recent Visits Date Type Provider Dept 02/07/23 Office Visit Leila Cade MD [facility] 12/25/22 Office Visit [facility] Chowdhury [facility] 11/08/22 Office Visit Leila Cade MD [facility] 05/03/22 Office Visit Leila Cade MD [facility] Showing recent visits within past 365 days [...] EVERY DAY Potassium Supplement Protocol Failed - 02/21/2023 2:12 PM Failed - Normal serum potassium in past 12 months POTASSIUM Date Value Ref Range Status 11/01/2022 3.4 (L) 3.5 - 5.1 mmol/L Final Passed - Visit with relevant provider in past 12 months or upcoming 90 days Recent Visits Date Type Provider Dept 02/07/23 Office Visit Leila Cade MD [facility] [place] 12/25/22 Office Visit Lucinda Chowdhury PAC [facility] 11/08/22 Office Visit Leila Cade MD [facility] 05/03/22 Office Visit Leila Cade MD [facility] Showing recent visits within past 365 days and meeting all other requirements Future Appointments No visits were found meeting these conditions. Showing future appointments within next 90 days and meeting all other requirements * Telephone Encounter - Hedy Canas RN - 02/22/2023 9:21 AM CDT Images from the original note were not included. Potassium Chloride Vero ER Dispensed Days Supply Quantity Provider Pharmacy [facility] M20 20MEQ ER TAB 02/18/2023 90 180 Tablet Leila Cade MD [id number]... documented in this encounter Plan of Treatment Upcoming Encounters Date Type Department Care Team (Late st Contact Info) Description 11/12/2024 1:45 PM CDT Office Visit [facility] - Family Medicine [facility] #2 [place] [address] Andrew Hearn MD #[address] [address] documented as of this encounter Visit Diagnoses [...] documented as of this encounter Care Teams Section Plotter Operator Relationship Specialty Start Date End Date Leila Cade MD #2 [place] [address] PCP - General Family Medicine 05/25/15 07/08/23 Lucinda Chowdhury, PAC [address] [place] [address] PCP - General Physician Senior Marketing Manager 07/09/23 01/02/24 Lucinda Chowdhury, PAC [address] [place] [address] PCP - General Physician Senior Marketing Manager 01/20/24 02/26/24 Jostin Stein MD #[address] [address] PCP - General Family Medicine 03/04/24 03/04/24 Andrew Hearn MD #[address] [address] PCP - General Family Medicine 03/16/24 documented as of this encounter
--- OUTSIDE RECORDS SUMMARY | 2024-11-07 13:31 | XMS_ITS | Encounter Summary ---
Author Organization [facility] Address [address] [place] [address] Phone Care Team Providers Care Senior Front End Engineer Name Role Phone Lucinda Chowdhury PAC Primary Care Provider + Lucinda Chowdhury PAC Primary Care Provider + Jostin Stein MD Primary Care Provider [phone] Andrew Hearn MD Primary Care Provider [phone] Reason for Visit * Reason Comments Medication Refill Encounter Details Date Type Department Care Team (Late st Contact Info) Description 10/03/2023 Refill [facility] #2 [place] [phone] Lucinda Chowdhury [facility] #2 [place] [address] Medication Refill Social History Tobacco Use Types [...] Telephone Encounter - Hedy Canas RN - 10/03/2023 10:50 AM CDT Medication(s) [facility] Refill Standing Order for Pediatricand Adult Patients. Requested Prescriptions Pending Prescriptions Disp Refills fluticasone (FLONASE) 50 MCG/ACT Suspension [Pharmacy Med Name: FLUTICASONE PROP 50 MCG SPRAY] 16 mL 2 Sig: SPRAY 1-2 SPRAYS IN EACH NOSTRIL EVERY DAY DIRECTED Nasal Steroids Protocol Passed - 10/03/2023 12:26 AM Passed - Visit with relevant provider in past 12 months or upcoming 90 days Recent Visits Date Type Provider Dept 07/12/23 Office Visit Agnieszka Fish APRN, [facility] 03/21/23 Office Visit Lucinda Chowdhury, PAC [facility] 02/07/23 Office Visit Leila Cade MD [facility] 12/25/22 Office Visit Lucinda Chowdhury PAC [facility] 11/08/22 Office Visit Leila Cade MD [facility] Showing recent visits within past 365 days and meeting all other requirements Future Appointments No visits were found meeting these conditions. Showing future appointments within next 90 days and meeting all other requirements documented in this encounter Plan of Treatment Upcoming Encounters Date Type Department Care Team (Late st Contact Info) Description 11/12/2024 1:45 PM CDT Office Visit [facility] - Family Medicine - [place] [address] [place] [address] Andrew Hearn MD [address] [address] documented as of this encounter Visit Diagnoses [...] documented as of this encounter Care Teams Senior Front End Engineer Relationship Specialty Start Date End Date Lucinda Chowdhury, PAC [address] [place] [address] PCP - General Physician Turn Machine Operator 07/09/23 01/02/24 Lucinda Chowdhury, [facility] [address] [place] [address] PCP - General Physician Turn Machine Operator 01/20/24 02/26/24 Jostin Setin MD #[address] [address] PCP - General Family Medicine 03/04/24 03/04/24 Andrew Hearn MD #[address] [address] PCP - General Family Medicine 03/16/24 documented as of this encounter
--- OUTSIDE RECORDS SUMMARY | 2024-11-07 13:31 | XMS_ITS | Encounter Summary ---
Author Organization [facility] Address [address] [place] [address] Phone Care Team Providers Care Sandfill Operator Surface Name Role Phone Andrew Hearn MD Primary Care Provider [phone] Encounter Details Date Type Department Care Team (Late st Contact Info) Description 10/13/2024 Results [facility] #2 [place] [id number] Andrew Hearn MD #[address] [address] PADMINI SCREENING BILATERAL DIGITAL W CAD W MESSI Social History Tobacco Use Types Packs/Day Years [...] Encounters Date Type Department Care Team (Late Contact Info) Description 11/12/2024 1:45 PM CDT [facility] [place] [address] Andrew Hearn MD [address] [facility] [place] [address] documented as of this encounter Visit Diagnoses Not on filedocumented in this encounter Additional Health Concerns Assessment Noted Time PHQ-9 Depression Total Score: 0 01/25/20 21 11:00 AM CDT documented as of this encounter Care Teams Sandfill Operator Surface Relationship Specialty Start Date End Date Andrew Hearn MD [address] [address] PCP - General Family Medicine 03/16/24 documented as of this encounter
--- OUTSIDE RECORDS SUMMARY | 2024-11-07 13:31 | XMS_ITS | Encounter Summary ---
Author Organization [facility] Address [address] [place] [address] Phone Care Team Providers Care Radiation Oncology Nurse Name Role Phone Leila Cade MD Primary Care Provider Lucinda Chowdhury PAC Primary Care Provider + Lucinda Chowdhury PAC Primary Care Provider + Jostin Stein MD Primary Care Provider [phone] Andrew Hearn MD Primary Care Provider [phone] Reason for Visit * Reason Comments Medication Refill Encounter Details Date Type Department Care Team (Late st Contact Info) Description 02/20/2021 Refill [facility] Medical Group - Family Medicine [facility] #2 [place] [address] Lucinda Chowdhury PAC [address] [place] [address] Medication Refill Social History Tobacco Use Types [...] Telephone Encounter - Hedy Canas RN - 02/21/2021 12:05 PM CDT The original prescription was discontinued on 11/03/2019 by Leila Cade MD for the followingreason: Therapy completed. Patient is on fluticasone nasal spray documented in this encounter Plan of Treatment Upcoming Encounters Date Type Department Care Team (Late st Contact Info) Description 11/12/2024 1:45 PM CDT Office Visit [facility] Medical Group - Family Medicine [facility] #2 [place] [address] Andrew Hearn MD #[address] [address] documented as of this encounter Visit Diagnoses [...] documented as of this encounter Care Teams Radiation Oncology Nurse Relationship Specialty Start Date End Date Leila Cade MD #[address] [place] [address] PCP - General Family Medicine 05/25/15 07/08/23 Lucinda Chowdhury, PAC [address] [place] [address] PCP - General Physician Stringer Up Soldering Machine 07/09/23 01/02/24 Lucinda Chowdhury, [facility] [address] [place] [address] PCP - General Physician Stringer Up Soldering Machine 01/20/24 02/26/24 Jostin Stein MD #[address] [address] PCP - General Family Medicine 03/04/24 03/04/24 Andrew Hearn MD #[address] [address] PCP - General Family Medicine 03/16/24 documented as of this encounter
--- OUTSIDE RECORDS SUMMARY | 2024-11-07 13:31 | XMS_ITS | Encounter Summary ---
Author Organization [facility] Address [address] [place] [address] Phone Care Team Providers Care Electronics Instructor Name Role Phone Andrew Hearn MD Primary Care Provider [phone] Reason for Visit * Reason Comments Medication Refill Encounter Details Date Type Department Care Team (Late st Contact Info) Description 03/10/2024 Refill [facility] Family Medicine [facility] [address] [place] [id number] Jostin Stein MD [address] [address] Medication Refill Social History Tobacco Use Types [...] Telephone Encounter - Hedy Canas RN - 03/10/2024 5:07 PM CDT YARITZA Hearn - has JACINTO with you 03/16/24 * Telephone Encounter - Hedy Canas RN - 03/10/2024 4:20 PM CDT Images from the original note were not included. Leila patient - upcoming JACINTO traMADol HCl Dispensed Days Supply Quantity Provider Pharmacy TRAMADOL HCL 50 MG TABLET 03/04/2024 5 20 Each Jostin Stein MD [facility]/pharmacy #[id number] - G... TRAMADOL HCL 50 MG TABLET 02/26/2024 5 20 Each Jayne Hou PAC [facility]/pharmacy #[id number] - G... Medication failed the protocol, provider to review and approve the medication order if appropriate. Requested Prescriptions Pending Prescriptions Disp Refills traMADol (ULTRAM) 50 MG Tablet [Pharmacy Med Name: TRAMADOL HCL 50 MG TABLET] 20 Tablet 0 Sig: TAKE 1 TABLET BY MOUTH EVERY 6 HOURS NEEDED FOR MODERATE OR SEVERE PAIN Not Delegated - Opioid Agonists Protocol Failed - 03/10/2024 2:53 PM Failed - This refill cannot be delegated Passed - Visit with relevant provider in past 12 months or upcoming 90 days Recent Visits Date Type Provider Dept 03/04/24 Office Visit Jostin Stein MD [facility] [place] 01/28/24 Office Visit Andrew Hearn MD [facility] [place] 07/12/23 Office Visit Agnieszka Fish APRN, ENROLLMENT COUNSELOR [facility] [place] 03/21/23 Office Visit Lucinda Chowdhury, [facility] Showing recent visits within past 365 days and meeting all other requirements Future Appointments Date Type Provider Dept 03/16/24 Appointment Andrew Hearn MD [facility] [place] Showing future appointments within next 90 days and meeting all other requirements documented in this encounter Plan of Treatment Upcoming Encounters Date Type Department Care Team (Late st Contact Info) Description 11/12/2024 1:45 PM CDT Office Visit [facility] - Family Medicine [facility] [address] [place] [address] Andrew Hearn MD [address] [place] [address] documented as of this encounter Visit Diagnoses Diagnosis Osteoarthritis of knees, bilateral documented in this encounter Additional Health Concerns Infection Onset Date Last Indicated Resolved Time Respiratory Rule-Out 09/27/2024 09/27/2024 025 3:40 PM CDT COVID - 19 09/27/2024 09/27/2024 09/27/2024 3:39 PM CDT Assessment Noted Time PHQ-9 Depression Total Score: 0 01/25/20 21 11:00 AM CDT documented as of this encounter Care Teams Electronics Instructor Relationship Specialty Start Date End Date Andrew Hearn MD [address] [address] PCP - General Family Medicine 03/16/24 documented as of this encounter
--- OUTSIDE RECORDS SUMMARY | 2024-11-07 13:32 | XMS_ITS | Encounter Summary ---
Author Organization [facility] Address [address] [place] [address] Phone Care Team Providers Care Closer On Name Role Phone Leila Cade MD Primary Care Provider [phone] Lucinda Chowdhury [facility] Primary Care Provider + Lucinda Chowdhury PAC Primary Care Provider + Jostin Stein MD Primary Care Provider [phone] Andrew Hearn MD Primary Care Provider Reason for Visit * Reason Comments Medication Refill Encounter Details Date Type Department Care Team (Late st Contact Info) Description 10/09/2022 Refill [facility] - Family Medicine [facility] [address] [place] [address] Leila Cade MD [address] [place] [address] Medication Refill Social History Tobacco Use Types [...] encounter Miscellaneous Notes * Telephone Encounter - Odalis Chris RN - 10/10/2022 9:34 AM CDT Medication failed the protocol, provider to review and approve the medication order if appropriate. Requested Prescriptions Pending Prescriptions Disp Refills cyclobenzaprine (FLEXERIL) 10 MG Tablet [Pharmacy Med Name: CYCLOBENZAPRINE 10 MG TABLET] 30 Tablet4 Sig: TAKE 1 TABLET BY MOUTH THREE TIMES A DAY NEEDED FOR MUSCLE SPASMS Not Delegated - Muscle Relaxants Protocol Failed - 10/09/2022 9:10 PM Failed - This refill cannot be [...] 1:45 PM CDT Office Visit [facility] - Family Medicine - [place] [address] [place] [address] Andrew Hearn MD [address] [address] documented as of this encounter Visit Diagnoses [...] documented as of this encounter Care Teams Closer On Relationship Specialty Start Date End Date Leila Cade MD [address] [place] [address] PCP - General Family Medicine 05/25/15 07/08/23 Lucinda Chowdhury, PAC [address] [place] [address] PCP - General Physician Key Ringer 07/09/23 01/02/24 Lucinda Chowdhury, [facility] [address] [place] [address] PCP - General Physician Key Ringer 01/20/24 02/26/24 Jostin Stein MD [address] [address] PCP - General Family Medicine 03/04/24 03/04/24 Andrew Hearn MD #[address] [address] PCP - General Family Medicine 03/16/24 documented as of this encounter
--- OUTSIDE RECORDS SUMMARY | 2024-11-07 13:32 | XMS_ITS | Encounter Summary ---
Author Organization [facility] Address [address] [place] [address] Phone Care Team Providers Care Agricultural Science Professor Name Role Phone Leila Cade MD Primary Care Provider [phone] [facility] Primary Care Provider + Lucinda Chowdhury PAC Primary Care Provider + Jostin Stein MD Primary Care Provider [phone] Andrew Hearn MD Primary Care Provider Reason for Visit * Reason Comments Medication Refill Encounter Details Date Type Department Care Team (Late st Contact Info) Description 05/21/2022 Refill [facility] - Family Medicine [facility] [address] [place] [address] Leila Cade MD [address] [place] [address] Medication Refill Social History Tobacco Use Types [...] Telephone Encounter - Odalis Chris RN - 05/22/2022 9:24 AM SERVICE CENTER SUPERVISOR PDMP tramadol 04/19/2022 #120, acetaminophen-codeine 04/19/2022 ##120 Medication failed the protocol, provider to review and approve the medication order if appropriate. Requested Prescriptions Pending Prescriptions Disp Refills candesartan (ATACAND) 8 MG Tablet [Pharmacy Med Name: CANDESARTAN CILEXETIL 8 MG TAB] 90 Tablet 1 Sig: TAKE 1 TABLET BY MOUTH EVERY DAY ARB Protocol Passed - 05/21/2022 8:52 PM Passed - Serum potassium on record in past 12 months POTASSIUM Date Value Ref Range Status 01/09/2022 3.5 3.5 - 5.1 mmol/L Final Passed - BP on record in the past year Clinician-entered: BP Readings from Last 3 Encounters: 05/03/22 128/90 01/31/22 122/70 01/09/22 (!) 119/101 Patient-entered: No data recorded Passed - Visit with relevant provider in past year or upcoming 90 days Recent Visits Date Type Provider Dept 05/03/22 Office Visit Leila Cade MD [facility] 01/31/22 Office Visit Leila Cade MD [facility] 08/01/21 Office Visit Leila Cade MD [facility] Showing recent visits within past 365 days and meeting all other requirements Future Appointments No visits were found meeting these conditions. Showing future appointments within next 90 days and meeting all other requirements Passed - GFR on record in past 12 months GFR, EST. Date Value Ref Range Status 01/09/2022 >60 >=60 Final Comment: Creatinine Clearance is the preferred criteria for selecting drug dose adjustments in renally impaired patients. The GFR is provided as additional pertinent clinical information. GFR is reported in mL/min/1.73 sq m. Acetaminophen-Codeine 300-60 MG Tablet [Pharmacy Med Name: ACETAMINOPHEN-COD #4 TABLET] 120 Tablet 0 Sig: TAKE 1 TABLET BY MOUTH 4 TIMES A DAY NEEDED FOR ARTHRITIS PAIN Not Delegated - Opioid Combinations Protocol Failed - 05/21/2022 8:52 PM Failed - This refill cannot be delegated Passed - Visit with relevant provider in past 12 months or upcoming 90 days Recent Visits Date Type Provider Dept 05/03/22 Office Visit Leila Cade MD [facility] 01/31/22 Office Visit Leila Cade MD [facility] 08/01/21 Office Visit Leila Cade MD [facility] [...] Delegated - Opioid Agonists Protocol Failed - 05/21/2022 8:52 PM Failed - This refill cannot be delegated Passed - Visit with relevant provider in past 12 months or upcoming 90 days Recent Visits Date Type Provider Dept 05/03/22 Office Visit Leila Cade MD [facility] 01/31/22 Office Visit Leila Cade MD [facility] 08/01/21 Office Visit Leila Cade MD [facility] Showing recent visits within past 365 days and meeting all other requirements Future Appointments No visits were found meeting these conditions. Showing future appointments within next 90 days and meeting all other requirements ICE CENTER SUPERVISOR documented in this encounter Plan of Treatment Upcoming Encounters Date Type Department Care Team (Late st Contact Info) Description 11/12/2024 1:45 PM CDT Office Visit [facility] - Family Medicine - [place] [address] [place] [address] Andrew Hearn MD [address] [address] documented as of this encounter Visit Diagnoses [...] documented as of this encounter Care Teams Agricultural Science Professor Relationship Specialty Start Date End Date Leila Cade MD [address] [place] [address] PCP - General Family Medicine 05/25/15 07/08/23 Lucinda Chowdhury, PAC [address] [place] [address] PCP - General Physician Head Of English 07/09/23 01/02/24 Lucinda Chowdhury, [facility] [address] [place] [address] PCP - General Physician Head Of English 01/20/24 02/26/24 Jostin Stein MD #[address] [address] PCP - General Family Medicine 03/04/24 03/04/24 Andrew Hearn MD [address] [place] [address] PCP - General Family Medicine 03/16/24 documented as of this encounter
--- OUTSIDE RECORDS SUMMARY | 2024-11-07 13:32 | XMS_ITS | Encounter Summary ---
Author Organization [facility] Address [address] [place] [address] Phone Care Team Providers Care Machine Design Checker Name Role Phone Leila Cade MD Primary Care Provider [phone] Lucinda Chowdhury [facility] Primary Care Provider + Lucinda Chowdhury PAC Primary Care Provider + Jostin Stein MD Primary Care Provider [phone] Andrew Hearn MD Primary Care Provider [phone] Reason for Visit * Reason Comments Medication Refill Encounter Details Date Type Department Care Team (Late st Contact Info) Description 10/31/2021 Refill [facility] - Family Medicine [facility] [address] [place] [address] Leila Cade MD [address] [place] [address] Medication Refill Social History Tobacco Use Types [...] Telephone Encounter - Hedy Canas RN - 11/01/2021 1:58 PM CDT 90 day dispensed 10/24/21 [facility] documented in this encounter Plan of Treatment Upcoming Encounters Date Type Department Care Team (Late st Contact Info) Description 11/12/2024 1:45 PM CDT Office Visit [facility] - Family [facility] [address] [place] [address] Andrew Hearn MD #[address] [address] documented as of this encounter Visit Diagnoses [...] documented as of this encounter Care Teams Machine Design Checker Relationship Specialty Start Date End Date Leila Cade MD [address] [place] [address] PCP - General Family Medicine 05/25/15 07/08/23 Lucinda Chowdhury PAC [address] [place] [address] PCP - General Physician Photographer Helper 07/09/23 01/02/24 Lucinda Chowdhury, PAC [address] [place] [address] PCP - General Physician Photographer Helper 01/20/24 02/26/24 [facility] [address] PCP - General Family Medicine 03/04/24 03/04/24 Andrew Hearn MD #[address] [address] PCP - General Family Medicine 03/16/24 documented as of this encounter
--- OUTSIDE RECORDS SUMMARY | 2024-11-07 13:32 | XMS_ITS | Clinical Summary ---
Author Organization [facility]TER Address [address] [place] [address] Phone Care Team Providers Care Mortgage Loan Reviewer Name Role Phone Andrew Hearn MD Primary Care Provider Allergies No known active allergies Medications Probiotic Product (PROBIOTIC PO) Take by mouth daily. Active Omeprazole 20 MG Tablet Delayed Response Take 20 mg by mouth daily. Active Symbicort 160-4.5 MCG/ACT Aerosol TAKE 2 PUFFS BY INHALATION 2 TIMES DAILY. 30.6 g 2 024 Active Zepbound 5 MG/0.5ML Solution Auto-injector INJECT 5 MG BY SUBCUTANEOUS ROUTE ONCE A WEEK. 2 mL 1 024 Active candesartan (ATACAND) 8 MG Tablet TAKE 1 TABLET BY MOUTH EVERY DAY 90 Tablet 1 024 Active hydroCHLOROthiazi de 25 MG Tablet TAKE 1 TABLET BY MOUTH EVERY DAY 90 Tablet 1 024 Active atorvastatin (LIPITOR) 10 MG Tablet TAKE 1 TABLET BY MOUTH EVERY DAY 90 Tablet 1 024 Active HYDROcodone-aceta minophen (NORCO) 5-325 MG TabletIndications :Osteoarthritis of left shoulder Take 1 Tablet by mouth every 8 hours as needed for Severe pain. 12 Tablet 025 Active fluticasone (FLONASE) 50 MCG/ACT Suspension SPRAY 1 SPRAY BY NASAL ROUTE DAILY. USE IN EACH NOSTRIL DIRECTED. 48 mL 1 025 Active traMADol (ULTRAM) 50 MG TabletIndications :Right shoulder strain, initial encounter,Primary osteoarthritis of both knees TAKE 1 TABLET BY MOUTH EVERY 6 HOURS NEEDED FOR MODERATE OR MORE SEVERE PAIN OR SEVERE PAIN. 120 Tablet 025 Active Zepbound 7.5 MG/0.5ML Solution Auto-injector INJECT 7.5 MG BY SUBCUTANEOUS ROUTE ONCE A WEEK. 2 mL 025 Active albuterol 108 (90 Base) MCG/ACT Aerosol SolutionIndicatio ns:Viral URI INHALE 2 PUFFS BY MOUTH EVERY 6 HOURS NEEDED FOR WHEEZING OR COUGH 18 g 1 025 Active cyclobenzaprine (FLEXERIL) 10 MG Tablet TAKE 1 TABLET BY MOUTH THREE TIMES A DAY NEEDED FOR MUSCLE SPASM 30 Tablet 3 025 Active potassium chloride SA (KLORCON M) 20 MEQ Tablet Controlled Release TAKE 1 TABLET BY MOUTH TWICE A DAY 180 Tablet 1 025 Active cyclobenzaprine (FLEXERIL) 10 MG Tablet Take 1 Tablet by mouth 3 times daily as needed for Muscle spasms. 30 Tablet 3 024 2024 Discontinued potassium chloride SA (Klor-Con M20) 20 MEQ Tablet Controlled Release Take 1 Tablet by mouth 2 times daily. 180 Tablet 1 024 2024 Discontinued tirzepatide-weigh t management (Zepbound) 7.5 MG/0.5ML Solution Auto-injector 7.5 mg by Subcutaneous route once a week. 2 mL 025 2024 Discontinued albuterol 108 (90 Base) MCG/ACT Aerosol SolutionIndicatio ns:Viral URI take 2 Puffs by inhalation every 6 hours as needed for Wheezing or Cough. 18 g 025 2024 Discontinued Active Problems Problem Noted Date Diagnosed Date Elevated serum creatinine 04/20/2024 Sinus drainage 03/04/2024 Osteoarthritis of knees, bilateral 03/04/2024 Postmenopausal 03/04/2024 Anemia, normocytic normochromic 03/04/2024 Hematuria 03/04/2024 Skin lesions 03/04/2024 Vitamin D deficiency 03/04/2024 Bariatric surgery status 01/26/2019 Metabolic syndrome 12/16/2017 BMI 50.0-59.9, adult 11/01/2017 Dietary counseling and surveillance 11/01/2017 Primary osteoarthritis involving multiple joints 06/17/2015 Essential hypertension 06/17/2015 Acid reflux 06/17/2015 Mild intermittent asthma without complication Alpha thalassemia 06/17/2015 Morbid obesity due to excess calories 06/17/2015 Acquired deviated nasal septum Nasal turbinate hypertrophy Tonsillar hypertrophy 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 BALDOMERO (obstructive sleep apnea) Encounters Date Type Department Care Team Description 10/29[facility] [place] [address] Andrew Hearn MD Medication Refill 10/29/2024 [facility] [place] [address] Lucinda Chowdhury, [facility] Medication Refill 10/27/2024 10:40 AM CDT [facility] [place] [address] [facility] Discharge Disposition: Discharged to home or Selfcare 10/27/2024 Travel 10/23/2024 [facility] [place] [address] Andrew Hearn MD Medication Refill 10/21/2024 [facility] [place] [address] Andrew Hearn MD 10/21/2024 [facility] [place] [address] Andrew Hearn MD Medication Refill 10/20/2024 [facility]phone [facility] [place] [address] Andrew Hearn MD Results (Mammogram) 10/19/[address] [facility] [place] [address] [place] [address] Jose Juan Recinos APRN, CNP Medication Refill 10/13/2024 Results Follow-Up [facility] [place] [address] Andrew Hearn MD PADMINI SCREENING BILATERAL DIGITAL W CAD W MESSI 10/12/2024 MyChart RX Renewal [facility] [place] [phone] Andrew Hearn MD Medication Renewal Request 10/11/2024 Refill [facility] [place] [address] Andrew Hearn MD Medication Refill 10/09/2024 1:11 PM CDT - 10/09/2024 11:59 PM CDT [facility] [place] [phone] Andrew Hearn MD Discharge Disposition: Discharged to home or Selfcare 10/09/2024 Travel 10/08/2024 Refill [facility] [place] [phone] Andrew Hearn MD Medication Refill 10/06/2024 Telephone [facility] [address] [place] [phone] Andrew Hearn MD Appointment 09/27/2024 3:10 PM CDT Urgent Care Visit [facility] [address] [place] [address] Jose Juan Recinos APRN, CNP Viral URI (Primary Dx); Acute cough Discharge Disposition: Discharged to home or Selfcare 09/27/2024 Travel 09/23/2024 [facility] [place] [address] Andrew Hearn MD Medication Refill 09/08/2024 [facility] [place] [address] Andrew Hearn MD Medication Refill 08/23/2024 [facility] [place] [address] Andrew Hearn MD Medication Refill from Last 3 Months Immunizations Immunization Administration Dates Next Due Covid-19 Vaccine, Vector-nr, Rs-ad26, Pf, 0.5 Ml ([employer]) 10/04/2020 Influenza Vaccine 05/25/2013 Influenza Vaccine greater than 3 yrs 04/28/2019 Influenza Vaccine, Quadrivalent, PF 03/09,04/17/2022,04/05/2020,2019(Deferred: Contraindication),05/07/2018 Influenza, Seasonal, Injecta ble, Undefined 04/28/2019 Influenza,Split Virus,Trivalent,Injectable,PF 03/16/2024 Pneumococcal Vaccine Adult - 23 Valent 04/05/2020,04/28/2019 Family History Medical History Relation Name Comments Cancer Brother leukemia Diabetes Father Hypertension Father Hypertension Mother Breast Cancer Sister Relation Name Status Comments Brother Father Mother Alive Sister Social History Tobacco Use Types Packs/Day Years Used Date Smoking Tobacco: Never Smokeless Tobacco: Never Tobacco Cessation:Counseling Given: No Alcohol Use Standard Drinks/Week Comments No 0 [...] Sign Reading Time Taken Comments Blood Pressure 136/84 09/27/2024 3:14 PM CDT Pulse 113 09/27/2024 3:14 PM CDT Temperature 36.7 C (98 F) 09/27/2024 3:14 PM CDT Respiratory Rate 15 09/27/2024 3:14 PM CDT Oxygen Saturation 99% 09/27/2024 3:14 PM CDT Inhaled Oxygen Concentration - - Weight 135.2 kg (298 lb) 07/23/2024 3:30 PM DELIVERY TECHNICIAN Height 175.3 cm (5' 9 ) 07/23/2024 3:30 PM DELIVERY TECHNICIAN Body Mass Index 44.01 07/23/2024 3:30 PM DELIVERY TECHNICIAN Plan of Treatment Upcoming Encounters Date Type Department Care Team (Late st Contact Info) Description 11/12/2024 1:45 PM CDT Office Visit [facility] [place] [address] Andrew Hearn MD #[address] [address] Health Maintenance Due Date Last Done Comments DEXA Bone Density 1960 TdaP Immunization 1960 Cologuard 09/17/2009 Immunochemical Fecal Occult Blood 09/17/2009 Zoster Immunization (1 of 2) 09/17/2009 Respiratory Syncytial Virus (RSV) Immunization (Adult) (1 - Risk 60-74 years 1-dose series) 2019 Pneumococcal Immunization (50+ years) (3 of 3 - PCV) 04/05/2021 04/05/2020, 04/28/2019 Colonoscopy 08/10/2021 08/10/2011 Colorectal Cancer Screening 08/10/2021 SARS-COV-2 Immunization (2 - season) 2024 10/04/2020 Mammogram 10/09/2025 10/09/2024, 01/2019, 2016 08/10/2011 Pneumococcal Immunization Combined Discontinued 04/05/2020, 04/28/2019 Hepatitis C Virus (HCV) Screening Completed 03/16/2024 Influenza Immunization Completed , 04/04/2023, 04/17/2022, Additional history exists Hepatitis B Immunization Aged Out No longer eligible based on patient's age to complete this topic Meningococcal Immunization (ACWY) Aged Out No longer eligible based on patient's age to complete this topic Rotavirus Immunization Aged Out No lo nger eligible based on patient's age to complete this topic Procedures Procedure Name Priority Date/Time Associated Diagnosis Comments PADMINI SCREENING BILATERAL DIGITAL W CAD W MESSI Routine 10/09/2024 1:52 PM CDT Encounter for screening mammogram for malignant neoplasm of breast POC INFLUENZA A AND B BY MOLECULAR Routine 09/27/2024 3:29 PM CDT Acute cough POC SARS-COV-2 BY MOLECULAR Routine 09/27/2024 3:28 PM CDT Acute cough HEPATITIS C ANTIBODY Routine 03/16/2024 3:57 PM CDT Encounter for hepatitis C screening test for low risk patient HM COLONOSCOPY Routine 08/10/2011 from Last 3 Months or Most Recently Relevant to Health Maintenance Results * PADMINI SCREENING BILATERAL DIGITAL W CAD W MESSI (10/09/2024 1:52 PM CDT) Anatomical Region Laterality Modality breast Bilateral Mammography 10/09/2024 1:16 PM CDT Narrative 10/12/2024 5:16 PM CDT - PADMINI SCREENING BILATERAL DIGITAL W CAD W MESSI BILATERAL DIGITAL SCREENING MAMMOGRAM 3D/2D WITH CAD WITH MEDIOLATERAL OBLIQUE CRANIOCAUDAL: 10/09/2024 The study was acquired using digital technology and interpreted from soft copy. Current study was also evaluated with ICAD version 7.2. 2D digital mammographic views, as well as 3D digital tomosynthesis were performed in the CC and MLO projections. CLINICAL: Routine screening. Patient has no complaints. She reports a 64 pound weight decrease. No personal history of cancer. Sister and half sister had breast cancer. COMPARISONS: Comparison is made to exams dated: 08/14/2018, 2016, and 07/15/2013 [facility]. BREAST TISSUE:There are scattered areas of fibroglandular density. FINDINGS: No significant masses, calcifications, or other findings are seen in either breast. There has been no significant interval change. IMPRESSION: NEGATIVE There is no mammographic evidence of malignancy. A 1 year screening mammogram is recommended. A letter will be sent to the patient with these results. The patient will be entered into a reminder system with a target due date of 1 year for her next screening exam. Electronically signed by: George lopez/penrad:10/12/2024 08:58:09 [employer] Lab Technician(s): RT Miranda(R)(M), [facility] letter sent: Normal Exam Reading location: [place] Mammogram BI-RADS: Category 1: Negative Procedure Note George Conn MD - 10/12/2024 - PADMINI SCREENING BILATERAL DIGITAL W CAD W MESSI BILATERAL DIGITAL SCREENING MAMMOGRAM 3D/2D WITH CAD WITH MEDIOLATERAL OBLIQUE CRANIOCAUDAL: 10/09/2024 The study was acquired using digital technology and interpreted from soft copy. Current study was also evaluated with UluleD version 7.2. 2D digital mammographic views, as well as 3D digital tomosynthesis were performed in the CC and MLO projections. CLINICAL: Routine screening. Patient has no complaints. She reports a 64 pound weight decrease. No personal history of cancer. Sister and half sister had breast cancer. COMPARISONS: Comparison is made to exams dated: 08/14/2018, 2016, and 07/15/2013 [facility]. BREAST TISSUE:There are scattered areas of fibroglandular density. FINDINGS: No significant masses, calcifications, or other findings are seen in either breast. There has been no significant interval change. IMPRESSION: NEGATIVE There is no mammographic evidence of malignancy. A 1 year screening mammogram is recommended. A letter will be sent to the patient with these results. The patient will be entered into a reminder system with a target due date of 1 year for her next screening exam. Electronically signed by: George lopez/penrad:10/12/2024 08:58:09 [employer] Lab Technician(s): RT Miranda(R)(M), [facility] letter sent: Normal Exam Reading location: [place] Mammogram BI-RADS: Category 1: Negative Andrew Hearn MD IMG MAMMO ORDERABLES Final Re sult * POC INFLUENZA A AND B BY MOLECULAR (09/27/2024 3:29 PM CDT) INFLUENZA A RNA Negative Negative, Invalid INFLUENZA B RNA Negative Negative, Invalid PROCEDURE CONTROL Valid 09/27/2024 3:29 PM CDT Jose Juan Recinos APRN, [facility] POINT OF CARE TE STING (MANUAL) Final Result * POC SARS-COV-2 BY MOLECULAR (09/27/2024 3:28 PM CDT) SARSCOV2 Negative Negative, INVALID PROCEDURE CONTROL Valid 09/27/2024 3:28 PM CDT Jose Juan Recinos APRN, [facility] POINT OF CARE TE STING (MANUAL) Final Result * HEPATITIS C ANTIBODY (03/16/2024 3:57 PM CDT) Pathologist [facility] hepatitis C antibody 0.07 <1 S/CO 03/16/2024 9:13 PM CDT [facility] Comment: Signal/Cutoff ratio < 0.79 is Nondetected Signal/Cutoff ratio 0.80-0.99 is Grayzone Signal/Cutoff ratio > 0.99 is Detected Supplemental assays are recommended if signal/cutoff ratio is >/=1.00. Signal/cutoff ratio result >/= 5.00 is 97% predictive of positivity for recombinant immunoblot assay (RIBA) and will be reported to the [place] [facility] as required. Blood Venipuncture / Unknown 03/16/2024 3:57 PM CDT 03/16/2024 4:48 PM CDT Jostin Stein MD CHEMISTRY ORDERABLES Lynda l Result [facility] [address] [place] [address], [place] * HM COLONOSCOPY (08/10/2011) Luc Copeland DO PROCEDURE/MINOR SURGICAL ORDERA BLES Final Result from Last 3 Months or Most Recently Relevant to Health Maintenance Insurance [facility] [[email or web address]] MEDICAID [place] Care Teams Mortgage Loan Reviewer Relationship Specialty Start Date End Date Andrew Hearn MD #[address] [address] PCP - General Family Medicine 03/16/24
== END 2024-11-06 12:51 | disposition home or self-care (01) ==
PROVIDERS: PCP Internal Medicine; Visit Provider Physician Assistant Surgical
DX: M17.0 Bilateral primary osteoarthritis of knee (principal)
CPT/HCPCS: 73564